=== PATIENT | male | born 1940 | race Caucasian/White ===

== ENCOUNTER 2024-02-03 19:37 | Inpatient (IN) ==
--- OUTSIDE RECORDS SUMMARY | 2024-02-03 19:44 | External Medical Summary ---
Author Name Unknown Address Unknown Organization K01:LABORATORY [facility] [place] - [address] [place] [address] Laboratory Report Ordering Provider Test Date Status ZENON DUNCAN 01/31/2024 08:34:39 Final Observation Date Value Abnormality Reference (Units ) Status MYCODE SPECIMEN-SST 01/31/2024 08:34:39 Freezing of extracted DNA, whole blood and/or serum. Final Performing Location LABORATORY C - [address] [place] [address]
--- OUTSIDE RECORDS SUMMARY | 2024-02-03 19:44 | External Medical Summary | Summary of Care ---
Author Name Unknown Organization [facility] Address [address] [place] [facility] [place] [address] Phone [phone] Care Team Providers Care Cadet Deck Name Role Phone Aaliyah Rasmussen MD Primary Care Provider Reason for Visit * Reason Comments Outpatient Testing Encounter Details Date Type Department Care Team (Late st Contact Info) Description 01/31/2024 7:30 AM EST Laboratory Laboratory [facility] [address] [place] [phone] [facility] [address] [place] [address] HTN, goal below 150/90; Hypertensive left ventricular hypertrophy, without heart failure; Pure hypercholesterolemia; Prediabetes; MyCode Research Other*[id number] Allergies Active Allergy Reactions Criticality Noted Date Comments Meperidine Hypotension 02/10/2020 Metronidazole Unknown 02/10/2020 Gadodiamide 11/30/2021 Pollen Other (Please comment) 02/10/2020 Itching around face, eyes, nose, and mouth; runny nose, sneezing Ragweed Other (Please comment) 02/10/2020 Itching around face, eyes, nose, and mouth; runny nose, sneezing Meperidine Hcl 11/30/2021 Nsaids High 12/19/2021 Other reaction(s): HX BLEEDING ULCERS-TOLD TO AVOID Pseudoephedrine Other (Please comment) 02/10/20 Heart palpitations documented as of this encounter (statuses as of 01/31/2024) Medications Medication Sig Dispensed Refills Start Date End Date Status Acetaminophen 325 MG Oral Tablet Take 1 Tablet by mouth every 6 hours as needed for Pain. 0 Active Fluorouracil 5 % External Cream (Efudex)Indications:AK (actinic keratosis) apply to affected area of sun damage nightly for 2 weeks 40 g 1 3 Active Triamcinolone Acetonide 0.1 % External Cream (Aristocort)Indications:D ermatitis Apply to area on trunk/neck as needed daily for rash 30 g 1 3 Active Donepezil HCl 10 MG Oral Tablet (Aricept)Indications:Mild cognitive impairment Take 1 Tablet by mouth in the morning. With breakfast, st 5mg 09/11/2023, inc 10mg 10/24/2023 90 Tablet 3 3 Active Dutasteride 0.5 MG Oral Capsule (Avodart) 1 Capsule. 0 3 Active Ofloxacin 0.3 % Ophthalmic Solution (Ocuflox) INSTILL 1 DROP RIGHT EYE FOUR TIMES A DAY BEGIN. 1 DAY PRIOR TO SURGERY 0 3 Active prednisoLONE Acetate 1 % Ophthalmic Suspension (Pred Forte) INSTILL 1 DROP INTO RIGHT EYE 4 TIMES A DAY 0 3 Active Atorvastatin Calcium 80 MG Oral Tablet (Lipitor)Indications:Mild cognitive impairment,Cerebral microvascular disease,Dyslipidemia, goal LDL below 70,Pure hypercholesterolemia Take 1 Tablet by mouth in the morning. Inc 11/06/2023. 90 Tablet 3 3 Active Aspirin 81 MG Oral Tablet Delayed ReleaseIndications:Mild cognitive impairment,Cerebral microvascular disease,Dyslipidemia, goal LDL below 70 Take 1 Tablet by mouth in the morning. St 11/06/2023. 100 Tablet 3 3 Active Famotidine 20 MG Oral Tablet (Pepcid) TAKE 1 TABLET BY MOUTH EVERYDAY AT BEDTIME 30 Tablet 5 3 Active Benazepril HCl 10 MG Oral Tablet (Lotensin) TAKE 1 TABLET BY MOUTH EVERY DAY IN THE MORNING 90 Tablet 1 4 Active Omeprazole 20 MG Oral Capsule Delayed Release (PriLOSEC) TAKE 1 CAPSULE BY MOUTH EVERY DAY IN THE MORNING 30 Capsule 5 4 Active Sildenafil Citrate 100 MG Oral Tablet TAKE ONE TABLET BY MOUTH DAILY NEEDED FOR ERECTILE DYSFUNCTION 10 Tablet 5 4 Active Ipratropium [place] 0.03 % Nasal Solution (Atrovent)Indications:Vas omotor rhinitis Administer 2 Sprays into each nostril 4 times a day as needed for Rhinitis. for runny nose 30 mL 5 4 Active documented as of this encounter (statuses as of 01/31/2024) Active Problems Problem Noted Date Diagnosed Date Carotid stenosis, non-symptomatic, bilateral Mild cognitive impairment 09/04/2023 Cerebral microvascular disease 09/04/2023 Sensorineural hearing loss (SNHL), bilateral 05/2023 Overview: Audiology eval 08/17--danilo SNHL, has defered TY Positional sleep apnea 01/30/2023 Nasal sinus congestion 01/30/2023 Hypertensive left ventricula r hypertrophy, without heart failure 01/17/2022 Overview: Goal<140/80 Prediabetes 12/05/2021 Overview: Per Prediabetes protocol Other male erectile dysfunction 09/23/2020 Trigger middle finger of left hand 04/23/2020 HTN, goal below 150/90 02/10/2020 Dyslipidemia, goal LDL below 70 02/10/2020 Postlaminectomy syndrome, lumbar 02/10/2020 History of bilateral knee replacement 02/10/2020 Generalized OA documented as of this encounter (statuses as of 01/31/2024) Immunizations Name Administration Dates Next Due COVID-19 mRNA, LNP-s, No Pre serve, 2-Dose Series (Moderna) 02/04/2021,12/25/2020 COVID-19, MRNA-LNP, 23-24, P F, 50 MCG/0.5 mL, 12 YRS AND ABOVE, IM (MODERNA-Spikevax) 09/17/2023 COVID-19, mRNA, LNP-s, PF, B ooster, 100mcg/0.5mg (Moderna) 04/12/2022,09/28/2021 Pneumococcal Conjugate Vacc, 13 Valent (Prevnar) 09/26/2016 Pneumococcal Polysaccharide PPV23 (Pneumovax) 09/23/2020 RSV Vac., Recomb, Adjuvant, PF,0.5 Ml (Arexvy) 09/17/2023 Season Influenza, Quad, PF, Adjuvanted, 65+ Yrs, IM (FLUAD) 09/23/2020 Seasonal Influenza, Quadriva lent Hd (Fluzone Hd) 09/04/2023,09/13/2022,09/08/2021 TDAP (age 10 and older)(Boostrix) 08/26/2014 Zoster Vaccine Recombinant (Shingrix) 10/04/2020 ,07/16/2020 documented as of this encounter Social History Tobacco Use Types Packs/Day Years Used Date Smoking Tobacco: Never Smokeless Tobacco: Never Alcohol Use Standard Drinks/Week Comments Yes 7 (1 standard drink = 0.6 oz pur e alcohol) "modest" AUDIT-C Answer Date Recorded Frequency of Alcohol Consumption 4 or more times a week 02/10/2020 Average Number of Drinks 1 or 2 020 Frequency of Binge Drinking Not on file 01/24 PHQ-2 Answer Date Recorded PHQ Adult Total Score 0 01/30/2023 Hunger Vital Sign Answer Date Recorded Worried About Running Out of Food in the Last Ye ar Never true 02/10/2020 Ran Out of Food in the Last Year Never true 02/10/2020 Sex and Gender Information Value Date Recorded Sex Assigned at Male 02/10/2020 9:00 AM EDT Gender Identity Male 02/10/2020 9:00 AM EDT Sexual Orientation Straight 02/10/2020 9: 00 AM EDT Job Start Date Occupation Industry Not on file Not on file Not on file documented as of this encounter Plan of Treatment Upcoming Encounters Date Type Department Care Team (Late st Contact Info) Description 02/05/2024 9:20 AM EDT Office Visit [facility] [address] [place] [address] Aaliyah Rasmussen MD [address] [place] [address] 03/11/2024 10:00 AM EDT Office Visit Gastroenterology, [facility] [address] [place] [address] Toya Schmidt CRNP [address] [place] [phone] 04/04/2024 8:00 AM EDT Office Visit Otolaryngology [facility] [address] [place] [address] Jim Guevara, DO [address] [place] [address] 05/13/2024 10:40 AM EDT Office Visit Sleep Disorders Ctr [facility] [address] [place] [phone] Alexandria Adam, DO [address] [place] [address] 06/11/2024 10:40 AM EDT Office Visit Dermatology [facility] [address] [place] [address] Mili Stout PA-C [address] [place] [phone] Pending Results Name Type Priority Associated Diagnoses Date /Time CBC WITH WBC DIFFERENTIAL Lab Routine HTN, goal below 150/90 Hypertensive left ventricular hypertrophy, without heart failure 01/31/2024 8:34 AM EST BASIC METABOLIC PANEL Lab Routine HTN, goal below 150/90 Hypertensive left ventricular hypertrophy, without heart failure 01/31/2024 8:34 AM EST HEPATIC FUNCTION PANEL Lab Routine Pure hypercholesterolemia 01/31/2024 8:34 AM EST LIPID PANEL WITH DIRECT LDL IF TG IS HIGH Lab Routine Pure hypercholesterolemia 01/31/2024 8:34 AM EST HEMOGLOBIN A1C Lab Routine Prediabetes 01/31/2024 8:34 AM EST MYCODE SUBSEQUENT ADULT Lab Routine MyCode Research Other*[id number] 01/31/2024 8:34 AM EST CBC Lab Routine HTN, goal below 150/90 Hypertensive left ventricular hypertrophy, without heart failure 01/31/2024 8:34 AM EST DIFFERENTIAL, AUTOMATED Lab Routine HTN, goal below 150/90 Hypertensive left ventricular hypertrophy, without heart failure 01/31/2024 8:34 AM EST MYCODE SST1 Lab Routine MyCode Research Other*[id number] 01/31/2024 8:34 AM EST MYCODE SST2 Lab Routine MyCode Research Other*[id number] 01/31/2024 8:34 AM EST URINALYSIS, REFLEX TO MICROSCOPIC Lab Routine HTN, goal below 150/90 Hypertensive left ventricular hypertrophy, without heart failure 01/31/2024 8:39 AM EST Health Maintenance Due Date Last Done Comments Depression Screening 01/31/2024 01/30/2023 HbA1c 08/03/2024 08/03/2023, 12/2022, 07/27/2022, Additional history exists DTaP,Tdap,and Td Vaccines (2 - Td or Tdap) 08/26/2024 08/26/2014 GFR 11/06/2024 11/06/2023, 06/2023, 01/25/2023, Additional history exists Albumin/Creatinine Ratio 08/07/2026 08/07/2023, 08/26 Pneumococcal Vaccine: 65+ Years Completed 09/23/2020, 09/26/2016 Zoster Vaccines Completed 10/04/2020, 07/16/2020 Influenza Vaccine (FLU shot) Completed 08/2023, 09/13/2022, 09/08/2021, Additional history exists COVID-19 Vaccine Completed 09/17/2023, , 09/28/2021, Additional history exists GARDASIL-HPV IMMUNIZATION SERIES Aged Out No longer eligible based on patient's age to complete this topic Hepatitis B Aged Out No longer eligi ble based on patient's age to complete this topic MENINGOCOCCAL (MENACTRA/MENVEO) Aged Out No longer eligible based on patient's age to complete this topic documented as of this encounter Medical Devices Not on filedocumented as of this encounter Visit Diagnoses Diagnosis HTN, goal below 150/90 Hypertensive left ventricular hypertrophy, without heart failure Pure hypercholesterolemia Prediabetes Other abnormal glucose MyCode Research Other*[id number] documented in this encounter Advance Directives Documents on File Type Date Recorded Patient Machine Operator General Expl anation Power of Cattle Broker 02/04/2008 POWER OF A TTORNEY - HEALTH CARE PROXY Care Teams Cadet Deck Relationship Specialty Start Date End Date Aaliyah Rasmussen MD [address] [facility] [place] [address] PCP - General Internal Medicine 10/28/21 documented as of this encounter
--- OUTSIDE RECORDS SUMMARY | 2024-02-03 19:44 | External Medical Summary ---
Author Name Unknown Address Unknown Organization K01:[place] [facility] [place] [address] [facility] [address] Laboratory Report Ordering Provider Test Date Status CRISTY MAN 01/31/2024 08:39:37 Final Observation Date Value Abnormality Reference (Units ) Status Color of Urine by Auto 01/31/2024 08:39:37 Light Yellow Colorless, Light Yellow, Yellow, Dark Yellow Final Clarity, Urine 01/31/2024 08:39:37 Clear Clear Final Glucose [Mass/volume] in Urine by Automated test strip 01/31/2024 08:39:37 Negative Negative (mg/dL) Final Bilirubin.total [Presence] in Urine by Automated test strip 01/31/2024 08:39:37 Negative Negative Final Ketones [Mass/volume] in Urine by Automated test strip 01/31/2024 08:39:37 Negative Negative (mg/dL) Final Specific gravity, Urine 01/31/2024 08:39:37 1.015 1.003-1.030 Final Hemoglobin [Presence] in Urine by Automated test strip 01/31/2024 08:39:37 Negative Negative Final pH, Urine 01/31/2024 08:39:37 6.5 5.0-7.5 (Units) Final Protein [Mass/volume] in Urine by Automated test strip 01/31/2024 08:39:37 Negative Negative (mg/dL) Final Urobilinogen [Mass/volume] in Urine by Automated test strip 01/31/2024 08:39:37 Normal Normal (mg/dL) Final Nitrite [Presence] in Urine by Automated test strip 01/31/2024 08:39:37 Negative Negative Final Leukocyte esterase [Presence] in Urine by Automated test strip 01/31/2024 08:39:37 Negative Negative Final Annotation Comment 01/31/2024 08:39:37 Final Screen negative - Microscopi c not performed. Performing Location LABORATORY C - [address] [place] [address]
--- OUTSIDE RECORDS SUMMARY | 2024-02-03 19:44 | External Medical Summary | Summary of Care ---
Author Name Unknown Organization [facility] Address [address] [place] [address] Phone [phone] Care Team Providers Care Presser And Shaper Knitted Goods Name Role Phone Aaliyah Rasmussen MD Primary Care Provider [phone] Reason for Visit * Reason Comments eRx-Medication Refill Encounter Details Date Type Department Care Team (Late st Contact Info) Description 01/29/2024 Refill General Internal Medicine [facility] [address] [place] [address] Aaliyah Rasmussen MD [address] [place] [address] Pure hypercholesterolemia; Cerebral microvascular disease; Mild cognitive impairment Allergies Active Allergy Reactions Criticality Noted Date [...] as of this encounter (statuses as of 01/30/2024) Medications Medication Sig Dispensed Refills Start Date [...] DYSFUNCTION 10 Tablet 5 4 Active Ipratropium [place] 0.03 % Nasal Solution (Atrovent)Indications:Vas omotor rhinitis Administer 2 Sprays into each nostril 4 times a day as needed for Rhinitis. for runny nose 30 mL 5 Active documented as of this encounter (statuses as of 01/30/2024) Active Problems Problem Noted Date Diagnosed Date [...] as of this encounter (statuses as of 01/30/2024) Immunizations Name Administration Dates Next Due COVID-19 [...] on file documented as of this encounter Miscellaneous Notes * Telephone Encounter - Ban Casillas [facility] - 01/30/2024 1:24 PM EST Refused Prescriptions: Disp Refills Atorvastatin Calcium 20 MG Oral Tablet (Li*90 Tab*0 Sig: TAKE 1TABLET BY MOUTH IN THE MORNING. INC 09/04/2023.Refused By: BAN CASILLAS for Refusal: Other (comment below)Reason for Refusal Comment: increased to 80 mg sent 11/06 documented in this encounter Plan of Treatment Upcoming Encounters Date Type Department Care Team (Late st Contact Info) Description 01/31/2024 7:30 AM EST Laboratory Laboratory [facility] [place] [address] [place] [phone] Judie, Lab [facility] [address] [facility] [place] [address] 02/05/2024 9:20 AM EDT Office Visit General Internal Medicine [facility] [address] [place] [address] Aaliyah Rasmussen MD [address] [facility] [place] [address] 03/11/2024 10:00 AM EDT Office Visit Gastroenterology, [facility] [address] [place] [address] Toya Schmidt CRNP [address] [place] [address] 04/04/2024 8:00 AM EDT Office Visit Otolaryngology [facility] [address] [place] [address] Jim Guevara DO [address] [place] [address] 05/13/2024 10:40 AM EDT Office Visit Sleep Disorders Ctr [facility] [address] [place] [phone] Alexandria Adam, DO [address] [place] [address] 06/11/2024 10:40 AM EDT Office Visit Dermatology [facility] [address] [place] [address] Mili Stout PA-C [address] [place] [phone] Health Maintenance Due Date Last Done Comments Depression Screening 01/31/2024 01/30/2023 HbA1c 08/03/2024 08/03/2023, 0 12/2022, 07/27/2022, Additional history exists DTaP,Tdap,and Td [...] as of this encounter Visit Diagnoses Diagnosis Pure hypercholesterolemia Cerebral microvascular disease Cerebrovascular disease, unspecified Mild cognitive impairment Mild cognitive impairment, so stated documented in this encounter Advance Directives Documents on File Type Date Recorded Patient Digital Media Strategist Expl anation Power of Cartographic Designer 02/04/2008 POWER OF A TTORNEY - HEALTH CARE PROXY Care Teams Presser And Shaper Knitted Goods Relationship Specialty Start Date End Date Aaliyah Rasmussen MD [address] [place] [address] PCP - General Internal Medicine 10/28/21 documented as of this encounter
--- OUTSIDE RECORDS SUMMARY | 2024-02-03 19:44 | External Medical Summary | Summary of Care ---
Author Name Unknown Organization [facility] Address [address] [place] [address] Phone [phone] Care Team Providers Care Medical Record Coder Name Role Phone Aaliyah Rasmussen MD Primary Care Provider [phone] Reason for Visit * Reason Comments Outpatient Testing Encounter Details Date Type Department Care Team (Late st Contact Info) Description 01/31/2024 7:30 AM EST Laboratory Laboratory [facility] [address] [place] [phone] [facility] Lab [address]enery [address] [place] [address] HTN, goal below 150/90; Hypertensive left ventricular hypertrophy, without heart failure; Pure hypercholesterolemia; Prediabetes; MyCode Research Other*[id number] Allergies Active Allergy Reactions Criticality Noted Date [...] DYSFUNCTION 10 Tablet 5 4 Active Ipratropium [place] 0.03 % Nasal Solution (Atrovent)Indications:Vas omotor rhinitis [...] AM EDT Office [facility] [address] [place] [address] Aaliyah Rasmussen MD [address] [place] [address] 03/11/2024 10:00 AM EDT Office Visit Gastroenterology, [facility] [address] [place] [address] Toya Schmidt CRNP [address] [place] [address] 04/04/2024 8:00 AM EDT Office Visit Otolaryngology [facility] [address] [place] [address] Jim Guevara, DO [address] [place] [address] 05/13/2024 10:40 AM EDT Office Visit Sleep Disorders Ctr [facility] [address] [place] [phone] Alexandria Adam, DO [address] [place] [address] 06/11/2024 10:40 AM EDT Office Visit Dermatology [facility] [address] [place], [place] [address] Mili Stout PA-C [address] [place] [phone] Pending Results Name Type Priority Associated Diagnoses Date /Time BASIC METABOLIC PANEL Lab Routine HTN, goal [...] MYCODE SUBSEQUENT ADULT Lab Routine MyCode Research Other*[id number] 01/31/2024 8:34 AM EST MYCODE SST1 Lab Routine MyCode Research Other*[id number] 01/31/2024 8:34 AM EST MYCODE SST2 Lab Routine MyCode Research Other*[id number] 01/31/2024 8:34 AM EST URINALYSIS, REFLEX TO [...] Not on filedocumented as of this encounter Procedures Procedure Name Priority Date/Time Associated Diagnosis Comments DIFFERENTIAL, AUTOMATED Routine 01/31/2024 8:34 AM EST HTN, goal below 150/90 Hypertensive left ventricular hypertrophy, without heart failure CBC Routine 01/31/2024 8:34 AM EST HTN, goal below 150/90 Hypertensive left ventricular hypertrophy, without heart failure CBC Routine 01/31/2024 8:34 AM EST HTN, goal below 150/90 Hypertensive left ventricular hypertrophy, without heart failure documented in this encounter Results * DIFFERENTIAL, AUTOMATED (01/31/2024 8:34 AM EST) WBC 6.86 4.00 - 10.80 K/uL 01/31/2024 8:45 AM EST [facility] 56-02 Neutrophils % 59.7 40.0 - 75.0 % 01/31/2024 8:45 AM [facility] 56-02 Lymphocytes % 23.8 18.0 - 42.0 % 01/31/2024 8:45 AM EST [facility] 56-02 Monocytes % 10.9 1.0 - 11.0 % 01/31/2024 8:45 AM EST [facility] 56-02 Eosinophils % 5.2 0.0 - 6.0 % 01/31/2024 8:45 AM [facility] 56-02 Basophils % 0.4 0.0 - 2.0 % 01/31/2024 8:45 AM [facility] 56-02 Absolute Neutrophils 4.09 1.80 - 7.70 K/uL 01/31/2024 8:45 AM EST [facility] 56-02 Absolute Lymphocytes 1.63 1.00 - 4.80 K/ul 01/31/2024 8:45 AM [facility] 56-02 Absolute Monocytes 0.75 0.00 - 1.10 K/uL 01/31/2024 8:45 AM [facility] 56-02 Absolute Eosinophils 0.36 0.00 - 0.70 K/uL 01/31/2024 8:45 AM [facility] 56-02 Absolute Basophils 0.03 0.00 - 0.20 K/uL 01/31/2024 8:45 AM [facility] 56-02 Blood Venous blood specimen / Unknown Venipuncture / Unknown 01/31/2024 8:34 AM EST 01/31/2024 8:35 AM EST Aaliyah Rasmussen MD LAB BLOOD ORDERABLES [facility] 56-[address] [place] [address] * CBC (01/31/2024 8:34 AM EST) Pathologist [facility] WBC 6.86 4.00 - 10.80 K/uL 01/31/2024 8:45 AM [facility] 56-02 RBC 4.87 4.50 - 5.25 M/uL 01/31/2024 8:45 AM [facility] 56- HGB 14.8 14.0 - 16.8 g/dL 01/31/2024 8:45 AM [facility] 56- HCT 45.6 40.0 - 48.4 % 01/31/2024 8:45 AM [facility] 56- MCV 93.6 82.0 - 99.5 fL 01/31/2024 8:45 AM [facility] 56- MCH 30.4 27.0 - 34.0 pg 01/31/2024 8:45 AM [facility] 56- MCHC 32.5 32.0 - 36.0 g/dL 01/31/2024 8:45 AM [facility] 56- RDW 13.7 11.5 - 15.5 % 01/31/2024 8:45 AM [facility] 56- PLT 224 140 - 400 K/uL 01/31/2024 8:45 AM [facility] 56- MPV 10.1 6.6 - 11.1 fL 01/31/2024 8:45 AM [facility] 56-02 Blood Venous blood specimen / Unknown Venipuncture / Unknown 01/31/2024 8:34 AM EST 01/31/2024 8:35 AM EST Aaliyah Rasmussen MD LAB BLOOD ORDERABLES [facility] 56- [address] [place] [address] documented in this encounter Visit Diagnoses Diagnosis HTN, goal below 150/90 Hypertensive left ventricular hypertrophy, without heart failure Pure hypercholesterolemia Prediabetes Other abnormal glucose MyCode Research Other*[id number] documented in this encounter Advance Directives Documents on File Type Date Recorded Patient Supervisor Green End Department Expl anation Power of Executive Chairman Of The Board 02/04/2008 POWER OF A TTORNEY - HEALTH CARE PROXY Care Teams Medical Record Coder Relationship Specialty Start Date End Date Aaliyah Rasmussen MD [address] [facility] [place] [address] PCP - General Internal Medicine 10/28/21 documented as of this encounter
--- OUTSIDE RECORDS SUMMARY | 2024-02-03 19:44 | External Medical Summary ---
Author Name Unknown Address Unknown Organization K09:[facility] [place] [address] Laboratory Report Ordering Provider Test Date Status CRISTY MAN 01/31/2024 08:34:39 Final Observation Date Value Abnormality Reference (Units ) Status BUN 01/31/2024 08:34:39 15 6-20 (mg/dL) Final Creatinine 01/31/2024 08:34:39 1.2 0.6-1.2 (mg/dL) Final Glomerular filtration rate/1.73 sq M.predicted [Volume Rate/Area] in Serum, Plasma or Blood by Creatinine-based formula (CKD-EPI) 01/31/2024 08:34:39 61 >=60 (mL/min) Final eGFR is calculated based on the CKD-EPI 2020 equation SODIUM 01/31/2024 08:34:39 141 135-146 (m mol/L) Final Potassium 01/31/2024 08:34:39 4.9 3.5-5.1 (m mol/L) Final Cl 01/31/2024 08:34:39 102 98-107 (mm ol/L) Final CO2 01/31/2024 08:34:39 30 22-32 (mmo l/L) Final Anion gap 01/31/2024 08:34:39 9 7-15 (mmol /L) Final Glucose 01/31/2024 08:34:39 97 70-120 (mg /dL) Final Calcium 01/31/2024 08:34:39 9.8 8.4-10.2 ( mg/dL) Final Performing Location [facility] [place] [address]
--- OUTSIDE RECORDS SUMMARY | 2024-02-03 19:44 | External Medical Summary ---
Author Name Unknown Address Unknown Organization [id number]:LABORATORY [facility] [place] - [address] [facility] [address] Laboratory Report Ordering Provider Test Date Status MAGDACRISTY 01/31/2024 08:34:39 Final Observation Date Value Abnormality Reference (Units ) Status Triglyceride 01/31/2024 08:34:39 105 <=174 ( mg/dL) Final Triglyceride Reference Range s (mg/dL):
<150 Acceptable
150-174 Borderline high
175-499 High
>=500 Very high Cholesterol 01/31/2024 08:34:39 166 <200 (mg /dL) Final Total Cholesterol Reference Ranges (mg/dL):
<200 Desirable
200-239 Borderline high
>=240 High HDL 01/31/2024 08:34:39 65 >39 (mg/dL ) Final HDL Cholesterol Reference Ra nges (mg/dL):
>=60 High (Desirable)
<50 Low (Undesirable) For Females
<40 Low (Undesirable) For Males NON-HDL CHOLESTEROL 01/31/2024 08:34:39 101 <=159 (mg/dL) Final Non-HDL Cholesterol Referenc e Range (mg/dL):
<100 Target level for high risk ASCVD patient
<130 Optimal for general population
130-159 Near optimal for general population
160-189 Borderline High
190-219 High
>=220 Very High LDL, (calculated) 01/31/2024 08:34:39 80 <= 129 (mg/dL) Final LDL Cholesterol Reference Ra nges (mg/dL):
<70 Target level for high risk ASCVD patient
<100 Optimal for general population
100-129 Near optimal for general population
130-159 Borderline high
160-189 High
>=190 Very high Performing Location LABORATORY [facility] - [address] [facility] [address]
--- OUTSIDE RECORDS SUMMARY | 2024-02-03 19:44 | External Medical Summary ---
Author Name Unknown Address Unknown Organization K09:[facility] [place] [address] Laboratory Report Ordering Provider Test Date Status MAGDACRISTY 01/31/2024 08:34:39 Final Observation Date Value Abnormality Reference (Units ) Status SYNC LEUKOCYTES IN BLOOD BY AUTOMATED COUNT 01/31/2024 08:34:39 6.86 4.00-10.80 (K/uL) Final Segs 01/31/2024 08:34:39 59.7 40.0-75.0 (%) Final Lymphs % 01/31/2024 08:34:39 23.8 18.0-42.0 (%) Final Monos 01/31/2024 08:34:39 10.9 1.0-11.0 (%) Final Eosinophils 01/31/2024 08:34:39 5.2 0.0-6.0 (%) Final Basos 01/31/2024 08:34:39 0.4 0.0-2.0 (%) Final Absolute Segs 01/31/2024 08:34:39 4.09 1.80-7.70 (K/uL) Final Lymphs, absolute 01/31/2024 08:34:39 1.63 1.00-4.80 (K/ul) Final Monos, Abs 01/31/2024 08:34:39 0.75 0.00-1.10 (K/uL) Final Eos, Abs 01/31/2024 08:34:39 0.36 0.00-0.70 (K/uL) Final Basos, Abs 01/31/2024 08:34:39 0.03 0.00-0.20 (K/uL) Final Performing Location [facility] [place] [address]
--- OUTSIDE RECORDS SUMMARY | 2024-02-03 19:44 | External Medical Summary ---
Author Name Unknown Address Unknown Organization K09:[facility] [place] [address] Laboratory Report Ordering Provider Test Date Status MAGDACRISTY 01/31/2024 08:34:39 Final Observation Date Value Abnormality Reference (Units ) Status Albumin 01/31/2024 08:34:39 4.5 3.8-5.0 (g/dL) Final AST (Aspartate aminotransferase) 01/31/2024 08:34:39 26 10-50 (U/L) Final Alk Phos 01/31/2024 08:34:39 112 35-130 (U/L) Final ALT (Alanine aminotransferase) 01/31/2024 08:34:39 23 10-50 (U/L) Final Bilirubin, Total 01/31/2024 08:34:39 0.7 <=1.2 (mg/dL) Final Bilirubin, Direct 01/31/2024 08:34:39 <0.2 0.0-0.3 (mg/dL) Final Protein 01/31/2024 08:34:39 7.3 6.0-8.3 (g/dL) Final Performing Location [facility] [place] [address]
--- OUTSIDE RECORDS SUMMARY | 2024-02-03 19:44 | External Medical Summary ---
Author Name Unknown Address Unknown Organization K01:LABORATORY [facility] [place] - [address] [facility] [address] Laboratory Report Ordering Provider Test Date Status CRISTY MAN 01/31/2024 08:34:39 Final Observation Date Value Abnormality Reference (Units ) Status HbA1C 01/31/2024 08:34:39 6.0 Above high normal 4. 0-5.6 (%) Final The use of HbA1c to monitor glycemic status is based on normal hemoglobin and HbA composition. This test should not be used in patients with abnormal hemoglobin that affects the half life of the red blood cell or the in vivo glycation rates. Glucose, estimated average 01/31/2024 08:34:39 126 Above high normal <126 (mg/dL) Brian pond Performing Location LABORATORY [facility] [place] - [address] [facility] [address]
--- OUTSIDE RECORDS SUMMARY | 2024-02-03 19:44 | External Medical Summary ---
Author Name Unknown Address Unknown Organization K01:LABORATORY [facility] [place] - [address] [place] [address] Laboratory Report Ordering Provider Test Date Status ZENON DUNCAN 01/31/2024 08:34:39 Final Observation Date Value Abnormality Reference (Units ) Status MYCODE SPECIMEN-SST 01/31/2024 08:34:39 Freezing of extracted DNA, whole blood and/or serum. Final Performing Location LABORATORY [facility] - [address] [place] [address]
--- OUTSIDE RECORDS SUMMARY | 2024-02-03 19:44 | External Medical Summary | Summary of Care ---
Author Name Unknown Organization [facility] Address [address] [place] [address] Phone [phone] Care Team Providers Care Sleep Technician Name Role Phone Aaliyah Rasmussen MD Primary Care Provider Reason for Referral * Evaluate & Treat - Unlimited Visits (Within 10 days (routine)) - Authorized Specialty Diagnoses / Procedures Referred By Kevin joe Referred To Contact Otolaryngology Diagnoses Vasomotor rhinitis Aaliyah Rasmussen MD [address] [place] [address] Referral ID Status Reason Start Date Expiration Date Visits Requested Visits Authorized [id number] Authorized Specialty Services Required 01/28/[phone] Question Answer Referral Priority Within 10 days (routine) Where should this appointment be scheduled? [facility] Reason for Referral Nasal/Sinus/Allergy Conditions Specific Condition: Rhinitis/Post Nasal Drip Reason for Visit * Reason Onset Date Comments Advice 01/25/2024 Encounter Details Date Type Department Care Team (Late st Contact Info) Description 01/25/2024 Telephone General Internal Medicine [place] Kevin Parisi [address] [place] [address] Aaliyah Rasmussen MD [address] [place] [id number] Advice Allergies Active Allergy Reactions Criticality Noted Date [...] TO AVOID Pseudoephedrine Other (Please comment) 02/10/20 20 Heart palpitations documented as of this encounter (statuses as of 01/28/2024) Medications Medication Sig Dispensed Refills Start Date End Date Status Acetaminophen 325 MG Oral Tablet Take 1 Tablet by mouth every 6 hours as needed for Pain. 0 Active Fluorouracil 5 % External Cream (Efudex)Indications:AK (actinic keratosis) apply to affected area of sun damage nightly for 2 weeks 40 g 1 3 Active Triamcinolone Acetonide 0.1 % External Cream (Aristocort)Indications: Dermatitis Apply to area on trunk/neck as needed daily for rash 30 g 1 3 Active Donepezil HCl 10 MG Oral Tablet (Aricept)Indications:Mil d cognitive impairment Take 1 Tablet by mouth [...] Active Atorvastatin Calcium 80 MG Oral Tablet (Lipitor)Indications:Mil d cognitive impairment,Cerebral microvascular disease,Dyslipidemia, goal LDL below [...] DYSFUNCTION 10 Tablet 5 4 Active Ipratropium Hurst 0.03 % Nasal Solution (Atrovent)Indications:Va somotor rhinitis Administer 2 Sprays into each nostril 4 times a day as needed for Rhinitis. for runny nose 30 mL 5 4 Active Ipratropium Hurst 0.03 % Nasal Solution (Atrovent)Indications:Va somotor rhinitis Administer 2 Sprays into each nostril 4 times a day as needed for Rhinitis. for runny nose 30 mL 1 3 024 Discontin ued(Refil l) documented as of this encounter (statuses as of 01/28/2024) Active Problems Problem Noted Date Diagnosed Date [...] as of this encounter (statuses as of 01/28/2024) Immunizations Name Administration Dates Next Due COVID-19 [...] encounter Miscellaneous Notes * Telephone Encounter - Harriett Monk LPN - 01/28/2024 3:25 PM EST Patients is aware and verbalizes understanding. Transferred to ENT scheduling * Telephone Encounter - Hannah Zaldivar LPN - 01/28/2024 3:08 PM EST Left message for pt to call back. * Telephone Encounter - Aaliyah Rasmussen MD - 01/28/2024 2:20 PM EST Refer to ent * Telephone Encounter - Miranda Reynoso OSA - 01/28/2024 11:21 AM EST Patient has been notified of the message. Patient states it is not curing it and still having hoarseness. * Telephone Encounter - Julia Clifford MED ASSIST - 01/28/2024 10:16 AM EST Called patient, left message to return call. * Telephone Encounter - Aaliyah Rasmussen MD - 01/25/2024 3:26 PM EST -If the medication is helping the runny nose we can send in the prescription. - if was helping and he stops it then he may have recurrence of the runny nose * Telephone Encounter - Hannah Zaldivar LPN - 01/25/2024 2:50 PM EST Pended if agreeable * Telephone Encounter - Reina Herrmann OSA - 01/25/2024 1:09 PM EST Pt calling in asking for refill on Ipratropium Hurst. Pt asking if you think he should still use it and if so can you refill? If she shouldn't, he wants to know what the side affects would be if hedoesn't take it. Please advise. documented in this encounter Plan of Treatment Upcoming Encounters Date Type Department Care Team (Late st Contact Info) Description 01/31/2024 7:30 AM EST Laboratory Laboratory [facility] [address] [facility] [place] [phone] [place] [address] [place] [address] 02/05/2024 9:20 AM EDT Office Visit General Internal Medicine [facility] [address] [facility] [place] [address] Aaliyah Rasmussen MD [address] [facility] [place] [address] 03/11/2024 10:00 AM EDT Office Visit Gastroenterology, [facility] [address] [address] Toya Schmidt CRNP [address] [address] 04/04/2024 8:00 AM EDT Office Visit Otolaryngology [facility] [address] [place] [address] Jim Guevara, DO [address] [place] [phone] 05/13/2024 10:40 AM EDT Office Visit Sleep Disorders Ctr [facility] [address] [place] [phone] Alexandria Adam, DO [address] [place] [phone] 06/11/2024 10:40 AM EDT Office Visit Dermatology [facility] [address] [place] [address] Mili Stout PA-C [address] [place] [phone] Scheduled Referrals Name Type Priority Associated Diagnoses Order Schedule ADULT/PEDS OTOLARYNGOLOGY REFERRAL OP Referral Within 10 days (routine) Vasomotor rhinitis Ordered: 01/28/2024 Health Maintenance Due Date Last Done Comments [...] as of this encounter Visit Diagnoses Diagnosis Vasomotor rhinitis Allergic rhinitis, cause unspecified documented in this encounter Advance Directives Documents on File Type Date Recorded 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 [address] PCP - General Internal Medicine 10/28/21 documented as of this encounter
--- OUTSIDE RECORDS SUMMARY | 2024-02-03 19:44 | External Medical Summary | Summary of Care ---
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 receive a call regarding this appointment within 2 weeks, please callPsychiatry Department to schedule: 4. I placed a referral for cognitive rehabilitation to help with your memory and thinking. [place] [facility]: Contact info Speech Cog Rehab PT OT Other services Telemed? [facility] [address] [place] [address] ; RN FORENSIC FAX + + + + Concussion I spent a total of 90 minutes coordinating, documenting, and providing care for this patient excluding time spent in the performance of separately billed services or time spent by another provider/QHP. AMINA Carvalho Nurse Practitioner [facility] 01/11/24 This patient is suspected to have obstructive sleep apnea given snoring, witnessed apneas and significant daytime sleepiness. A sleep study was therefore ordered. We discussed treatment modalities for DONAVAN including PAP. documented in this encounter Nursing Notes * Cherelle Rivero MED ASSIST - 01/11/2024 12:51 PM EST Chief Complaint Patient presents with NEW PATIENT Memory Loss documented in this encounter Plan of Treatment Upcoming Encounters Date Type Department Care Team (Late st Contact Info) Description 01/31/2024 7:30 AM EST Laboratory Laboratory [facility] [address] [facility] [place] [phone] Oneal Dimas [address] [place] [address] 02/05/2024 9:20 AM EDT Office Visit General Internal Medicine [facility] [address] [place] [address] Aaliyah Rasmussen MD [address] [facility] [place] [address] 03/11/2024 10:00 AM EDT Office Visit [facility], [facility] [place] [address] Toya Schmidt CRNP [facility] [place] [address] 03/28/2024 9:50 AM EDT Office Visit Neurology [facility] [address] [facility] [place] [address] Priscila Walker CRNP [address] [place] [address] 05/13/2024 10:40 AM EDT [facility] [address] [place] [phone] Alexandria Adam DO [address] [place] [address] 06/11/2024 10:40 AM EDT Office Visit Dermatology [facility] Judie [place] [address] [place] [address] Mili Stout PA-C [address] [place] [phone] Scheduled Referrals Name Type Priority Associated Diagnoses Order Schedule SLEEP MEDICINE REFERRAL OP Referral Within 10 days (routine) Positional sleep apnea Ordered: 01/11/2024 ADULT/PEDS NEUROPSYCHOLOGY REFERRAL OP Referral Within 10 days (routine) MCI (mild cognitive impairment) Ordered: 01/11/2024 SPEECH PATHOLOGY REFERRAL OP Referral Within 10 days (routine) MCI (mild cognitive impairment) Ordered: 01/11/2024 Health Maintenance Due Date Last Done Comments [...] as of this encounter Visit Diagnoses Diagnosis MCI (mild cognitive impairment)- Primary Mild cognitive impairment, so stated Positional sleep apnea Unspecified sleep apnea Cerebral microvascular disease [I67.89] Cerebrovascular disease, unspecified Memory change [R41.3] Memory loss documented in this encounter Advance Directives Documents on File Type Date Recorded 

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
--- OUTSIDE RECORDS SUMMARY | 2024-02-03 20:03 | External Medical Summary | Summary of Care ---
Author Name Unknown Organization [facility] Address [address] [place] [address] Phone [phone] Care Team Providers Care Power Plant Superintendent Name Role Phone Aaliyah Rasmussen MD Primary Care Provider [phone] Reason for Visit * Reason Comments eRx-Medication Refill Encounter Details Date Type Department Care Team (Late st Contact Info) Description 01/08/2024 Refill General Internal Medicine [facility] [address] [place] [address] Aaliyah Rasmussen MD [address] [place] [address] Allergies Active Allergy Reactions Criticality Noted Date [...] as of this encounter (statuses as of 01/09/2024) Medications Medication Sig Dispensed Refills Start Date End Date Status Acetaminophen 325 MG Oral Tablet Take 1 Tablet by mouth every 6 hours as needed for Pain. 0 Active Fluorouracil 5 % External Cream (Efudex)Indications:AK (actinic keratosis) apply to affected area of sun damage nightly for 2 weeks 40 g 1 08/14/20 23 Active Triamcinolone Acetonide 0.1 % External Cream (Aristocort)Indications :Dermatitis Apply to area on trunk/neck as needed daily for rash 30 g 1 09/27/20 23 Active Donepezil HCl 10 MG Oral Tablet (Aricept)Indications:Mi ld cognitive impairment Take 1 Tablet by mouth in the morning. With breakfast, st 5mg 09/11/2023, inc 10mg 10/24/2023 90 Tablet 3 10/24/20 23 Active hydrOXYzine HCl 25 MG Oral Tablet 1 Tablet 3 times a day as needed. 0 10/31/20 23 Active Dutasteride 0.5 MG Oral Capsule (Avodart) 1 Capsule. 0 10/26/20 23 Active Ofloxacin 0.3 % Ophthalmic Solution (Ocuflox) INSTILL 1 DROP RIGHT EYE FOUR TIMES A DAY BEGIN. 1 DAY PRIOR TO SURGERY 0 10/22/20 23 Active prednisoLONE Acetate 1 % Ophthalmic Suspension (Pred Forte) INSTILL 1 DROP INTO RIGHT EYE 4 TIMES A DAY 0 10/22/20 23 Active Atorvastatin Calcium 80 MG Oral Tablet (Lipitor)Indications:Mi ld cognitive impairment,Cerebral microvascular disease,Dyslipidemia, goal LDL below 70,Pure hypercholesterolemia Take 1 Tablet by mouth in the morning. Inc 11/06/2023. 90 Tablet 3 11/06/20 23 Active Ipratropium [place] 0.03 % Nasal Solution (Atrovent)Indications:V asomotor rhinitis Administer 2 Sprays into each nostril 4 times a day as needed for Rhinitis. for runny nose 30 mL 1 11/06/20 23 Active Aspirin 81 MG Oral Tablet Delayed ReleaseIndications:Mild cognitive impairment,Cerebral microvascular disease,Dyslipidemia, goal LDL below 70 Take 1 Tablet by mouth in the morning. St 11/06/2023. 100 Tablet 3 11/06/20 23 Active Famotidine 20 MG Oral Tablet (Pepcid) TAKE 1 TABLET BY MOUTH EVERYDAY AT BEDTIME 30 Tablet 5 11/21/20 23 Active Benazepril HCl 10 MG Oral Tablet (Lotensin) TAKE 1 TABLET BY MOUTH EVERY DAY IN THE MORNING 90 Tablet 1 12/20/19 24 Active Omeprazole 20 MG Oral Capsule Delayed Release (PriLOSEC) TAKE 1 CAPSULE BY MOUTH EVERY DAY IN THE MORNING 30 Capsule 5 12/21/19 24 Active Sildenafil Citrate 100 MG Oral Tablet TAKE ONE TABLET BY MOUTH DAILY NEEDED FOR ERECTILE DYSFUNCTION 10 Tablet 5 01/09/20 24 Active Sildenafil Citrate 100 MG Oral Tablet TAKE ONE TABLET BY MOUTH EVERY DAY NEEDED FOR ERECTILE DYSFUNCTION 10 Tablet 5 08/01/20 23 024 Discontinued documented as of this encounter (statuses as of 01/09/2024) Active Problems Problem Noted Date Diagnosed Date [...] as of this encounter (statuses as of 01/09/2024) Immunizations Name Administration Dates Next Due COVID-19 [...] Miscellaneous Notes * Telephone Encounter - Ban Casillas, [facility] - 01/09/2024 10:14 AM EST Signed Prescriptions: Disp Refills Sildenafil Citrate 100 MG Oral Tablet 10 Tab*5 Sig: TAKE ONE TABLET BY MOUTH DAILY NEEDED FOR ERECTILE DYSFUNCTIONAuthorizing Provider: Crow RASMUSSEN User: BAN CASILLAS documented in this encounter Plan of Treatment Upcoming Encounters Date Type Department Care Team (Late st Contact Info) Description 01/11/2024 1:00 PM EST Office Visit Neurology [facility] [address] [place] [address] Татьяна Diamond, DO [address] [place] [address] 01/31/2024 7:30 AM EST Laboratory Laboratory [facility] [address] [place] [phone] [facility] [place] [address] [address] [facility] [place] [address] 02/05/2024 9:20 AM EDT Office Visit General Internal Medicine [facility] [address] [place] [address] Aaliyah Rasmussen MD [address] [facility] [place] [address] 03/11/2024 10:00 AM EDT Office Visit Gastroenterology, [facility] [address] [facility] [place] [address] Toya Schmidt CRNP [address] [facility] [place] [address] 06/11/2024 10:40 AM EDT Office Visit Dermatology [facility] [address] [place] [address] Mili Stout PA-C [facility] [place] [phone] Health Maintenance Due Date Last Done Comments Depression Screening 01/31/2024 01/30/2023 HbA1c 08/03/2024 08/03/2023, 0312/2022, 07/27/2022, Additional history exists DTaP,Tdap,and Td Vaccines [...] Not on filedocumented as of this encounter Advance Directives Documents on File Type Date Recorded Patient Lvn Expl anation Power of Project Management Engineer 02/04/2008 POWER OF A TTORNEY - HEALTH CARE PROXY Care Teams Power Plant Superintendent Relationship Specialty Start Date End Date Aaliyah Rasmussen MD [address] [place] [address] PCP - General Internal Medicine 10/28/21 documented as of this encounter
[2024-02-03] MEDS: SODIUM CHLORIDE 0.9% 1,000 ML IV ONE ×2 (20:11→22:15)
[2024-02-03] MEDS: ONDANSETRON INJ 2 MG/ML 2 ML VIAL IV STA (20:12)
[2024-02-03] MEDS: OPTIRAY 320 100ml IV ONE (20:25)
[2024-02-03 20:30] LABS: iSTAT Creatinine 1.1 mg/dl (0.6-1.3); iSTAT Hemoglobin 16.7 g/dl (14.0-18.0); iSTAT Ionized Calcium 1.2 mmol/l (1.12-1.32)
[2024-02-03 20:36] LABS: Basophils # (auto) 0.07 K/uL (0.00-0.20); Basophils % (auto) 0.6 %; Eosinophils # (auto) 0.18 K/uL (0.00-0.50); Eosinophils % (auto) 1.5 %; Hematocrit (blood only) 47.8 % (42.0-52.0); Hemoglobin 15.9 g/dl (14.0-18.0); Immature Granulocytes # (auto) 0.05 K/uL (0.01-0.20); Immature Granulocytes % (auto) 0.4 %; Lymphocytes # (auto) 1.09 K/uL (1.20-3.40); Lymphocytes % (auto) 9.3 %; Mean Corpuscular Hemoglobin 30.4 pg (25.0-34.0); Mean Corpuscular Hgb Conc 33.3 g/dL (32.0-36.0); Mean Corpuscular Volume 91.4 fL (80.0-100.0); Mean Platelet Volume 10.1 fL (9.4-12.4); Neutrophils # (auto) 9.57 K/uL (1.40-6.50); Neutrophils % (auto) 82.2 %; Platelet Count 240 K/uL (130-400); RDW Coefficient of Variation 13.2 % (11.5-14.5); RDW Standard Deviation 44.3 fL (36.4-46.3); Red Blood Count 5.23 M/uL (4.70-6.10); White Blood Count 11.66 K/ul (4.8-10.8)
[2024-02-03 20:45] LABS: Albumin Globulin Ratio 1.5 (0.9-2); Albumin Level 4.4 gm/dl (3.4-5.0); BUN Creatinine Ratio 15.9 (10-20); Bilirubin,Total 0.8 mg/dl (0.2-1.0); Calcium 9.5 mg/dl (8.6-10.3); Creatinine Clr Calc Pharmacy 50.6 ml/min; Est GFR (African American) 75.1 ml/min; Est GFR (Non-African American) 64.8 ml/min; Globulin 2.9 gm/dl (2.5-4.0); Total Protein 7.3 gm/dl (6.0-8.3)
--- NOTE | 2024-02-03 20:56 | CT Scan Report ---
Exam(s): CT ABDOMEN + PELVIS With Contrast IV Amt: OPTIRAY 320 86ML EXAM: CT Abdomen and Pelvis With Intravenous Contrast CLINICAL HISTORY: Reason for exam: Infraumbilical abdominal pain. TECHNIQUE: Axial computed tomography images of the abdomen and pelvis with intravenous contrast. CTDI is 18.7 mGy and DLP is 809.36 mGy-cm. Automated exposure control was utilized for the study. A dose lowering technique was utilized adhering to the principles of ALARA. CONTRAST: Patient received OPTIRAY 320 86ML of IV contrast COMPARISON: No relevant prior studies available. FINDINGS: Lung bases: Unremarkable. No mass. No consolidation. ABDOMEN: Liver: Unremarkable. No mass. Gallbladder and bile ducts: Unremarkable. No calcified stones. No ductal dilation. Pancreas: Unremarkable. No mass. No ductal dilation. Spleen: Unremarkable. No splenomegaly. Adrenals: Unremarkable. No mass. Kidneys and ureters: Renal cysts measure up to 1.7 cm. No hydronephrosis. Stomach and bowel: Distended small bowel measures up to 3.2 cm, consistent with small bowel obstruction. Area of transition is in the RIGHT lower quadrant on coronal image 30. Diverticulosis, without acute diverticulitis. No small bowel obstruction. No free intraperitoneal air. PELVIS: Appendix: Normal appendix. Bladder: Unremarkable. No mass. Reproductive: Unremarkable as visualized. ABDOMEN and PELVIS: Intraperitoneal space: Unremarkable. No free air. No significant fluid collection. Bones/joints: Degenerative changes of the spine. Posterior fusion at L4-S1. No acute fracture. No dislocation. Soft tissues: Unremarkable. Vasculature: Atherosclerotic changes of the aorta. No abdominal aortic aneurysm. Lymph nodes: Unremarkable. No enlarged lymph nodes. IMPRESSION: 1. Distended small bowel measures up to 3.2 cm, consistent with small bowel obstruction. Area of transition is in the RIGHT lower quadrant on coronal image 30. Surgical evaluation recommended. 2. Diverticulosis, without acute diverticulitis. No small bowel obstruction. No free intraperitoneal air. Electronically signed by: Darion Tidwell MD 02/03/24 20:55 PM
[2024-02-03] MEDS: MoRPHine SULFATE 4 MG/ML 1 ML CARP\\VIAL IV STA (21:15)
--- NOTE | 2024-02-03 21:43 | Surgery Consultation ---
Date of Consultation February 03, 2024 Assessment & Plan (1) Small bowel obstruction: I discussed with the treating emergency room physician and the patient is being admitted on the hospitalist service. From surgical perspective we recommend the following: Implement n.p.o. status Provide IV fluid for hydration Follow serial labs Follow serial abdominal exams At the present time the patient's abdomen is nondistended without peritoneal signs. He also has not had any emesis in approximately 1 hour. Therefore, I feel we can hold on placing an NG tube. I did discuss with the patient that if he has any worsening of his abdominal exam, worsening symptomatology, or further emesis the use of this modality will need to be reconsidered. Antiemetics and analgesics should be provided for the patient but they should be used sparingly as are not when to mask any underlying problems with use of these medications. This was discussed with the admitting service. I had a detailed discussion with the patient and his family who are present at bedside outlining the above conservative plan. I did discuss with the patient that determination about the need for surgical intervention will be determined based on his clinical course as unfolds. Additional recommendations will be made during the patient's hospitalization as his clinical course unfolds. Addendum 5:40 AM: Patient reassessed at bedside. He denies any worsening abdominal pain. Since admission he has not had any further nausea or vomiting. He has not passed any flatus but notes his abdomen feels essentially normal this morning. He has remained hemodynamically stable and afebrile since admission. I discussed with the patient that advancement of his diet will be dependent on when he has return of bowel function. Supervising Physician Co-Signing Physician Notes I personally saw and evaluated the patient with Iggy Alvarez PA-C and agree with the assessment and plan. 83-year-old male with a small bowel obstruction, likely on the basis of adhesio ns His CT results and images were personally viewed and interpreted by myself His abdominal exam is fairly benign and has no tachycardia, fevers and his white blood cell count is 11 He is being admitted to medicine, will keep him n.p.o., no need for an NG tube No plans for any surgical intervention at this time, will continue to follow History of Present Illness Reason for Consultation: Small bowel obstruction History of Present Illness This is an 83-year-old male who presented the emergency department secondary to abdominal pain. Patient says that he was in his usual state of health feeling fine yesterday and he was able to eat all 3 meals of normal amounts. He did report that he began to have hiccups yesterday and some generalized lower abdominal pain after his evening meal. He notes that the symptoms persisted into today and he described a lower abdominal pain in a bandlike fashion with no radiation or modifying factors. He denies any fevers, shakes, or chills. No close contacts were ill with similar symptoms. He did have 2 episodes of nausea and vomiting with the most recent episode approximately 1 hour prior to my evaluation. He notes that he did not vomit any blood. He reports that he had a normal bowel movement this morning but since his symptomatology worsened he has not passed any flatus or had a bowel movement. Patient does report a history of prior surgery in the form of an open appendectomy in the 1960s. He also notes that he was recently diagnosed with irritable bowel syndrome. He says he has had a colonoscopy within the last year to the best of his knowledge there were no tumors or cancers noted. He also has a history of peptic ulcer disease in the remote past. Since arrival to the emergency department patient has had labs and imaging which independent reviewed. A CT scan of the abdomen pelvis showed the patient had distended small bowel loops measuring up to 3.2 cm with an area of transition in the right lower quadrant consistent with a small bowel obstruction. There is no intraperitoneal free air noted on this study. CBC reveals white blood cell count had a slight elevation at 11.6. Hemoglobin, hematocrit, platelet count were all normal. Chemistry profile showed sodium and potassium along with the BUN and creatinine were normal. The patient had a nonelevated lipase. His LFTs were also unremarkable. At the time my interview the patient was resting comfortably bed he was in no distress. Allergies Allergy/AdvReac Type Severity Reaction Status Date / Time meperidine [From Demerol] AdvReac Intermediate Hypotension Verified 02/03/24 21:24 NSAIDS (Non-Steroidal AdvReac Intermediate HX Verified 02/03/24 21:24 Anti-Inflamma BLEEDING ULCERS-TOLD TO AVOID pseudoephedrine AdvReac Mild Tachycardia Verified 02/03/24 21:24 [From [facility]] Home Medications Medication Instructions Recorded Confirmed Type acetaminophen 325 mg tablet 650 mg PO QID PRN Pain 03/28/21 02/03/24 History amlodipine 2.5 mg tablet 2.5 mg PO QPM 03/28/21 02/03/24 History atorvastatin 10 mg tablet 10 mg PO QAM 03/28/21 02/03/24 History benazepril 10 mg tablet 10 mg PO QAM 04/27/22 02/03/24 History dutasteride 0.5 mg capsule 0.5 mg PO QAM 10/26/23 02/03/24 History famotidine 20 mg tablet 20 mg PO QPM 10/26/23 02/03/24 History omeprazole 20 mg tablet,delayed 40 mg PO QAM 10/26/23 02/03/24 History release hydroxyzine HCl 25 mg tablet 25 mg PO BID PRN itching 10/31/23 02/03/24 History sildenafil 100 mg tablet 100 mg PO DAILY PRN Erectile 10/31/23 02/03/24 History Dysfunction aspirin 81 mg tablet,delayed 81 mg PO DAILY 02/03/24 02/03/24 History release donepezil 10 mg tablet 10 mg PO QAM 02/03/24 02/03/24 History ipratropium bromide 21 mcg (0.03 2 spray intranasal QID PRN Nasal 02/03/24 02/03/24 History %) nasal spray Congestion Patient History Medical History Fusion of spine Lumbar spinal fusion x2 2007, 2014 [facility] Right lumbar radiculopathy Osteoarthritis Hx of gastric ulcer 7 years ago History of pneumonia 1970's Spinal stenosis Degenerative disc disease lumbar Arthritis Seasonal allergies GERD (gastroesophageal reflux disease) Hiatal hernia History of stomach ulcers Hx of fracture of skull ? INTERVENTION (EVENT THAT HAPPENED "WHILE IN COLLEGE") Hypertension Hyperlipidemia Surgical History S/P carpal tunnel release L/R History of anesthesia reaction PT FELT "ANXIOUS AND SCARED FEELING" WHEN ANESTHESIA ADMINISTERED FOR TONSILLECTOMY A CHILD--also hypertension and "woke up too early" years ago after knee arthroscopy H/O shoulder surgery RT History of arthroscopy RT/LEFT KNEE History of total knee replacement RT/LEFT History of esophagogastroduodenoscopy (EGD) Hx of gastric ulcers History of colonoscopy History of appendectomy History of cataract surgery LEFT [place] teeth removed History of tonsillectomy Family History Father Pancreatic cancer Mother Myocardial infarction Other No family history of adverse response to anesthesia Social History Smoking Status: Never smoker Second Hand Exposure: No; Do You Dip or Chew Tobacco: No; Hx Alcohol Use: Yes Alcohol type: beer, wine and hard liquor Hx Substance Use: No Preferred Language: Spanish Communication Ability: Effective Cook 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 Required: No Beliefs That Will Affect Care: None Current Living Situation: Spouse Other Information That Helps Us Care for You: No Feels Safe at Home: Yes Safety Concerns: Feels Safe At This Time Assistive Devices: None Assistive Devices Comment: glasses not present Review of Systems Constitutional: no fever and no chills Ear, Nose, Mouth, Throat: no hearing loss Respiratory: no cough and no dyspnea Cardiovascular: no chest pain Gastrointestinal: as per Subjective / HPI Genitourinary: no dysuria Musculoskeletal: no back pain Integumentary: no rash Neurologic: no localized weakness Physical Exam Constitutional: WD/WN, vitals as above Eyes: no conjunctival abnormality ENMT: Ears: no hearing impairment Mouth: no oropharynx abnormality Neck: trachea midline Respiratory: normal respiratory effort; no respiratory distress and no labored breathing Cardiovascular: Rate/Rhythm: regular rate and regular rhythm Gastrointestinal (Abdomen): Abdomen is soft with minimal distention. There is minimal pain with palpation a t the time of my exam. There is also no rebound tenderness or guarding. I do not appreciate any hernias. Patient had a well-healed oblique incision in the right lower quadrant of his abdomen consistent with his noted history of open appendectomy. Musculoskeletal: No calf tenderness Skin: no rashes Neurologic: moves all extremities Psychiatric: A+Ox3, euthymic affect Results & Data Vital Signs (Past 12 Hours) Vital Signs Temp Pulse Resp BP Pulse Ox O2 Del Method 02/03/24 21:35 58 L 19 133/71 93 Room Air 02/03/24 21:00 73 21 96 Room Air 02/03/24 20:39 55 L 16 153/61 H 97 Room Air 02/03/24 20:39 54 L 18 98 Room Air 02/03/24 19:43 36.6 C 69 18 127/79 96 Room Air PG Care Time/CCT Total # of Minutes Spent Total Time Spent with Patient: Total time spent is greater than 50% in coordination of care (as documented) at patient's floor/unit and/or counseling patient: Coding Level of Care Code 59642 INT INP/OBS CARE 3/75MIN Diagnoses Small bowel obstruction K56.609
--- NOTE | 2024-02-03 21:54 | History & Physical Report ---
Date of Service February 03, 2024 Assessment & Plan (1) Small bowel obstruction: Plan: PVD, history of carotid artery disease on aspirin hypertension, stable hyperlipidemia, on statin Rx chronic bradycardia PUD, on PPI hemoglobin A1c of prediabetes, 6 from January 2024 BPH, stable on regimen mild cognitive impairment GMF Bowel rest NGT insertion to facilitate decompression if with further emesis (Insert through right nostril/nasal cavity if needed as per family given history left-sided facial injury) General surgery consult Re: SBO (Patient already seen at the ER by provider.) DVT prophylaxis with Lovenox subcu Full code Patient requesting updates providers. Mike Carmella [place], contact #[phone]. Text document was generated using [employer] voice recognition software. It may contain grammatical or spelling errors. Kindly contact undersigned for clarification of any documentation item in question. History of Present Illness Chief Complaint: Abdominal pain Primary Care Provider: Aaliyah Rasmussen MD History obtained from patient, family, and records. Medical history significant for PVD, hypertension, hyperlipidemia, chronic bradycardia, DONAVAN as per records, PUD, prediabetes, BPH, mild cognitive impairment. Patient experienced lower abdominal pain yesterday later followed by nausea and emesis. Good bowel movement today. No fever, no chills. No chest pain, no SOB. No prior bowel obstruction episodes in the past. 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 Allergies Allergy/AdvReac Type Severity Reaction Status Date / Time meperidine [From Demerol] AdvReac Intermediate Hypotension Verified 02/03/24 21:24 NSAIDS (Non-Steroidal AdvReac Intermediate HX Verified 02/03/24 21:24 Anti-Inflamma BLEEDING ULCERS-TOLD TO AVOID pseudoephedrine AdvReac Mild Tachycardia Verified 02/03/24 21:24 [From Sudafed] Home Medications Medication Instructions Recorded Confirmed Type acetaminophen 325 mg tablet 650 mg PO QID PRN Pain 03/28/21 02/03/24 History amlodipine 2.5 mg tablet 2.5 mg PO QPM 03/28/21 02/03/24 History atorvastatin 10 mg tablet 10 mg PO QAM 03/28/21 02/03/24 History benazepril 10 mg tablet 10 mg PO QAM 04/27/22 02/03/24 History dutasteride 0.5 mg capsule 0.5 mg PO QAM 10/26/23 02/03/24 History famotidine 20 mg tablet 20 mg PO QPM 10/26/23 02/03/24 History omeprazole 20 mg tablet,delayed 40 mg PO QAM 10/26/23 02/03/24 History release hydroxyzine HCl 25 mg tablet 25 mg PO BID PRN itching 10/31/23 02/03/24 History sildenafil 100 mg tablet 100 mg PO DAILY PRN Erectile 10/31/23 02/03/24 History Dysfunction aspirin 81 mg tablet,delayed 81 mg PO DAILY 02/03/24 02/03/24 History release donepezil 10 mg tablet 10 mg PO QAM 02/03/24 02/03/24 History ipratropium bromide 21 mcg (0.03 2 spray intranasal QID PRN Nasal 02/03/24 02/03/24 History %) nasal spray Congestion Past Med/Surg History Medical History Fusion of spine Lumbar spinal fusion x2 2007, 2014 [facility] Right lumbar radiculopathy Osteoarthritis Hx of gastric ulcer 7 years ago History of pneumonia 1969's Spinal stenosis Degenerative disc disease lumbar Arthritis Seasonal allergies GERD (gastroesophageal reflux disease) Hiatal hernia History of stomach ulcers Hx of fracture of skull ? INTERVENTION (EVENT THAT HAPPENED "WHILE IN COLLEGE") Hypertension Hyperlipidemia Surgical History S/P carpal tunnel release L/R History of anesthesia reaction PT FELT "ANXIOUS AND SCARED FEELING" WHEN ANESTHESIA ADMINISTERED FOR TONSILLECTOMY A CHILD--also hypertension and "woke up too early" years ago after knee arthroscopy H/O shoulder surgery RT History of arthroscopy RT/LEFT KNEE History of total knee replacement RT/LEFT History of esophagogastroduodenoscopy (EGD) Hx of gastric ulcers History of colonoscopy History of appendectomy History of cataract surgery LEFT [place] teeth removed History of tonsillectomy Family History Father Pancreatic cancer Mother Myocardial infarction Other No family history of adverse response to anesthesia Social History Smoking Status: Never smoker Second Hand Exposure: No; Do You Dip or Chew Tobacco: No; Hx Alcohol Use: Yes Alcohol type: wine and hard liquor Hx Substance Use: No Preferred Language: Lebanese Communication Ability: Effective Evp General Counsel Required: No Beliefs That Will Affect Care: None Current Living Situation: Spouse Feels Safe at Home: Yes Assistive Devices: Glasses Review of Systems Review of Systems: As per HPI, all other systems reviewed and negative Physical Exam Physical Exam: GENERAL: Comfortable, pleasant, slightly hard of hearing, no respiratory distress SKIN: Normal color, warm HEENT: Alopecia, [place] palpebral conjunctivae, no ptosis, dry buccal mucosa NECK : Supple, no tenderness CHEST : CTA, no tenderness HEART : Bradycardic, no obvious murmurs ABDOMEN: Some distention, minimal central abdominal tenderness EXTREMITIES : No LE swelling/tenderness, no other conspicuous deformities noted NEUROLOGIC : Coherent, no facial asymmetry, slightly hard of hearing, no other gross focality Results & Data Results & Data Vital Signs (Past 12 Hours) Vital Signs Temp Pulse Resp BP Pulse Ox O2 Del Method 02/03/24 21:35 58 L 19 133/71 93 Room Air 02/03/24 21:00 73 21 96 Room Air 02/03/24 20:39 55 L 16 153/61 H 97 Room Air 02/03/24 20:39 54 L 18 98 Room Air 02/03/24 19:43 36.6 C 69 18 127/79 96 Room Air Laboratory Results Laboratory Results WBC 11.66 K/ul (4.8-10.8) H 02/03/24 20:03 RBC 5.23 M/uL (4.70-6.10) 02/03/24 20:03 Hgb 15.9 g/dl (14.0-18.0) 02/03/24 20:03 POC Hgb 16.7 g/dl (14.0-18.0) 02/03/24 20:18 Hct 47.8 % (42.0-52.0) 02/03/24 20:03 POC Hct 49 % (42-52) 02/03/24 20:18 MCV 91.4 fL (80.0-100.0) 02/03/24 20: MCH 30.4 pg (25.0-34.0) 02/03/24 20: MCHC 33.3 g/dL (32.0-36.0) 02/03/24 20: RDW Std Deviation 44.3 fL (36.4-46.3) 02/03/24 20: RDW Coeff of Bib 13.2 % (11.5-14.5) 02/03/24 20: Plt Count 240 K/uL (130-400) 02/03/24 20:03 MPV 10.1 fL (9.4-12.4) 02/03/24 20:03 Immature Gran % (Auto) 0.4 % 02/03/24 20: Neut % (Auto) 82.2 % 02/03/24 20:03 Lymph % (Auto) 9.3 % 02/03/24 20: [place] % (Auto) 6.0 % 02/03/24 20: Eos % (Auto) 1.5 % 02/03/24 20:03 Baso % (Auto) 0.6 % 02/03/24 20:03 Neut # (Auto) 9.57 K/uL (1.40-6.50) H 02/03/24 20:03 Lymph # (Auto) 1.09 K/uL (1.20-3.40) L 02/03/24 20:03 [place] # (Auto) 0.70 K/uL (0.11-0.59) H 02/03/24 20:03 Eos # (Auto) 0.18 K/uL (0.00-0.50) 02/03/24 20:03 Baso # (Auto) 0.07 K/uL (0.00-0.20) 02/03/24 20: Immature Gran # (Auto) 0.05 K/uL (0.01-0.20) 02/03/24 20:03 POC Sodium 139 mmol/L (135-144) 02/03/24 20:18 Sodium 138 mmol/L (136-145) 02/03/24 20:03 POC Potassium 4.0 mmol/L (3.3-5.0) 02/03/24 20:18 Potassium 4.0 mmol/L (3.5-5.1) 02/03/24 20:03 POC Chloride 100 mmol/L (101-112) L 02/03/24 20:18 Chloride 102 mmol/L (98-107) 02/03/24 20:03 Carbon Dioxide 29 mmol/L (21-32) 02/03/24 20:03 POC Total CO2 30 mmol/L (24-31) 02/03/24 20:18 Anion Gap 7 (3-11) 02/03/24 20:03 POC Anion Gap 15.0 mmol/L (16-25) L 02/03/24 20:18 POC BUN 18 mg/dl (7-18) 02/03/24 20:18 BUN 17 mg/dl (6-23) 02/03/24 20:03 Creatinine 1.07 mg/dl (0.6-1.4) 02/03/24 20:03 POC Creatinine 1.1 mg/dl (0.6-1.3) 02/03/24 20:18 Est Cr Clr Drug Dosing 50.6 ml/min 02/03/24 20:03 Est GFR ( Amer) 75.1 ml/min 02/03/24 20:03 Est GFR (Non-Af Amer) 64.8 ml/min 02/03/24 20:03 BUN/Creatinine Ratio 15.9 (10-20) 02/03/24 20:03 Glucose 139 mg/dl (70-99(Fasting)) H 02/03/24 20:03 POC Glucose (other) 140 mg/dl (70-99) H 02/03/24 20:18 Calcium 9.5 mg/dl (8.6-10.3) 02/03/24 20:03 POC Ioniz Calcium Mally 1.20 mmol/l (1.12-1.32) 02/03/24 20:18 Total Bilirubin 0.8 mg/dl (0.2-1.0) 02/03/24 20:03 AST 21 U/L (13-39) 02/03/24 20:03 ALT 17 U/L (7-52) 02/03/24 20:03 Alkaline Phosphatase 105 U/L (34-104) H 02/03/24 20:03 Total Protein 7.3 gm/dl (6.0-8.3) 02/03/24 20:03 Albumin 4.4 gm/dl (3.4-5.0) 02/03/24 20:03 Globulin 2.9 gm/dl (2.5-4.0) 02/03/24 20:03 Albumin/Globulin Ratio 1.5 (0.9-2) 02/03/24 20:03 Lipase 20 U/L (11-82) 02/03/24 20:03 Impressions Abdomen/Pelvis CT 02/03/24 19:55 Exam(s): CT ABDOMEN + PELVIS With Contrast IV Amt: OPTIRAY 320 86ML EXAM: CT Abdomen and Pelvis With Intravenous Contrast CLINICAL HISTORY: Reason for exam: Infraumbilical abdominal pain. TECHNIQUE: Axial computed tomography images of the abdomen and pelvis with intravenous contrast. CTDI is 18.7 mGy and DLP is 809.36 mGy-cm. Automated exposure control was utilized for the study. A dose lowering technique was utilized adhering to the principles of ALARA. CONTRAST: Patient received OPTIRAY 320 86ML of IV contrast COMPARISON: No relevant prior studies available. FINDINGS: Lung bases: Unremarkable. No mass. No consolidation. ABDOMEN: Liver: Unremarkable. No mass. Gallbladder and bile ducts: Unremarkable. No calcified stones. No ductal dilation. Pancreas: Unremarkable. No mass. No ductal dilation. Spleen: Unremarkable. No splenomegaly. Adrenals: Unremarkable. No mass. Kidneys and ureters: Renal cysts measure up to 1.7 cm. No hydronephrosis. Stomach and bowel: Distended small bowel measures up to 3.2 cm, consistent with small bowel obstruction. Area of transition is in the RIGHT lower quadrant on coronal image 30. Diverticulosis, without acute diverticulitis. No small bowel obstruction. No free intraperitoneal air. PELVIS: Appendix: Normal appendix. Bladder: Unremarkable. No mass. Reproductive: Unremarkable as visualized. ABDOMEN and PELVIS: Intraperitoneal space: Unremarkable. No free air. No significant fluid collection. Bones/joints: Degenerative changes of the spine. Posterior fusion at L4-S1. No acute fracture. No dislocation. Soft tissues: Unremarkable. Vasculature: Atherosclerotic changes of the aorta. No abdominal aortic aneurysm. Lymph nodes: Unremarkable. No enlarged lymph nodes. IMPRESSION: 1. Distended small bowel measures up to 3.2 cm, consistent with small bowel obstruction. Area of transition is in the RIGHT lower quadrant on coronal image 30. Surgical evaluation recommended. 2. Diverticulosis, without acute diverticulitis. No small bowel obstruction. No free intraperitoneal air. Electronically signed by: Darion Tidwell MD 02/03/24 20:55 PM
[2024-02-03] MEDS ORDERED: PROMETHAZINE HCL 6.25 MG in SODIUM CHLORIDE 0.9% 50 ML IV PRN (21:57)
[2024-02-03] MEDS: METOCLOPRAMIDE HCL INJ 5 MG/ML 2 ML VIAL IV ONE (22:15)
[2024-02-03 23:00] LABS: Appearance Urine Clear (Clear); Bacteria Urine Automated Negative (Negative); Bilirubin Urine Negative (Negative); Blood Urine Trace (Negative); Color Urine Yellow; Glucose Urine UA Negative (Negative); Ketones Urine Negative (Negative); Leukocyte Esterase Urine Trace (Negative); Nitrite Urine Negative (Negative); Protein Urine Negative (Negative); RBC Urine Automated 0-4 /hpf (0-4); Specific Gravity Urine > 1.045 (1.000-1.030); Urobilinogen Urine Negative (Negative)
--- OUTSIDE RECORDS SUMMARY | 2024-02-03 23:05 | External Medical Summary | Summary of Care ---
Author Name Unknown Organization [facility] Address [address] [place] [address] Phone [phone] Care Team Providers Care Director Of Casework Name Role Phone Aaliyah Rasmussen MD Primary Care Provider [phone] Reason for Referral * Evaluate & Treat - Unlimited Visits (Within 10 days (routine)) - Authorized Specialty Diagnoses / Procedures Referred By Kevin joe Referred To Contact Speech Pathology / Speech Pathology Diagnoses MCI (mild cognitive impairment) Priscila Walker CRNP [address] [place] [address] Referral ID Status Reason Start Date Expiration Date Visits Requested Visits Authorized [id number] Authorized Specialty Services Required 01/11/2024 999 999 Question Answer Referral Priority Within 10 days (routine) Where should this appointment be scheduled? [facility] Cognitive rehabilitation * Evaluate & Treat - Unlimited Visits (Within 10 days (routine)) - Authorized Specialty Diagnoses / Procedures Referred By Kevin joe Referred To Contact Psychiatry / Psychology Diagnoses MCI (mild cognitive impairment) Priscila Walker CRNP [address] [place] [address] Referral ID Status Reason Start Date Expiration Date Visits Requested Visits Authorized [id number] Authorized Specialty Services Required 01/11/2024 999 999 [...] sleep apnea Priscila Walker CRNP [address] [place] [address] Referral ID Status Reason Start Date Expiration Date Visits Requested Visits Authorized [id number] Authorized Specialty Services Required 01/11/2024 2 2 Question Answer Referral Priority Within 10 days (routine) Where should this appointment be scheduled? [facility] SLEEP MED ADULT REFERRAL Sleep Apnea Testing [...] Mild cognitive impairment Aaliyah Rasmussen MD [address] [facility] [place] [address] Referral ID Status Reason Start Date Expiration Date Visits Requested Visits Authorized [id number] Authorized Specialty Services Required 3 [phone] Encounter Details Date Type Department Care Team (Latest Contact Info) Description 01/11/2024 1:00 PM EST Office Visit Neurology State Kevin Parisi [address] [place] [id number] Татьяна Diamond DO [address], [place] [id number] MCI (mild cognitive impairment)*; Positional sleep apnea; [...] as of this encounter (statuses as of 01/18/2024) Medications Medication Sig Dispensed Refills Start Date [...] 11/06/2023. 90 Tablet 3 3 Active Ipratropium Pinson 0.03 % Nasal Solution (Atrovent)Indications:Va somotor rhinitis [...] as of this encounter (statuses as of 01/18/2024) Active Problems Problem Noted Date Diagnosed Date [...] as of this encounter (statuses as of 01/18/2024) Immunizations Name Administration Dates Next Due COVID-19 [...] to help with your memory and thinking. [place]: Contact info Speech Cog Rehab PT OT Other services Telemed? [facility] [address] [place] [address] ; NAIL PROFESSIONAL FAX + + + + Concussion documented in this encounter Progress Notes * Татьяна Diamond DO - 01/12/2024 10:08 AM EST Attending attestation: I have reviewed the advanced practitioner's documentation on the date of service referenced in note, and I agree with, and take responsibility for the plan of care. Татьяна Diamond DO 01/18/2024 documented in this encounter Nursing Notes * Cherelle Rivero, MED ASSIST - 01/11/2024 12:51 PM EST Chief Complaint Patient presents with NEW PATIENT Memory Loss documented in this encounter Plan of Treatment Upcoming Encounters Date Type Department Care Team (Late st Contact Info) Description 01/31/2024 7:30 AM EST Laboratory Laboratory [facility] [address] [facility] [address] [place] [id number] Oneal Dimas [facility] [address] [facility] [place] [address] 02/05/2024 9:20 AM EDT Office Visit General Internal Medicine [facility]ie [place] [address] [place] [address] Aaliyah Rasmussen MD [address] [facility] [place] [address] 03/11/2024 10:00 AM EDT Office Visit Gastroenterology, [facility] [address] [address] Toya Schmidt CRNP [address] [address] 03/28/2024 9:50 AM EDT Office Visit Neurology [facility] [address] [place] [address] Priscila Walker CRNP [address] [place] [address] 05/13/2024 10:40 AM EDT Office Visit [facility] Ontiveros [place] [address] [place] [phone] Alexandria Adam DO [address] [place] [address] 06/11/2024 10:40 AM EDT Office Visit Dermatology [facility] [place] [address] [place] [address] Mili Stout PA-C [address] [place] [phone] Scheduled Referrals Name Type [...] Documents on File Type Date Recorded 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
--- OUTSIDE RECORDS SUMMARY | 2024-02-03 23:05 | External Medical Summary | Continuity of Care Document ---
Author Name Unknown Organization [facility] [address] [id number] Address [address] [place] [id number] Care Team Providers Care Vice President Of Human Resources Name Role Phone Aaliyah Rasmussen Primary Care Physician [phone] [id number] Date(s): 01/16/24 - 01/16/24 [facility] [address] [id number] [facility] [address] [address] Encounter Diagnosis History of lumbar laminectomy.(Discharge Diagnosis) - 01/16/24 Right lumbar radiculopathy(Discharge Diagnosis) - 01/16/24 Discharge Disposition: Home or Self Care Attending Physician: NILDA Landry Jolene Marie Allergies, Adverse Reactions, Alerts Substance Reaction Severity Status meperidine Low blood pressure Active pseudoephedrine unknown Active gadodiamide Unknown Active Demerol unknown Active Pollen 1 Propensity to adverse reaction Active Ragweed 2 Propensity to adverse reaction Active NSAIDS (nonsteroidal anti-in flammatory agents) Unknown Severe Active metroNIDAZOLE topical Allergic reaction to drug Active 1Outside Source Comment: Itching around face, eyes, nose, and mouth; runny nose, sneezing 2Outside Source Comment: Itching around face, eyes, nose, and mouth; runny nose, sneezing Assessment and Plan Extracted from: Title:Orthopaedics Office Visit Note Author:Jayne escobar PA-C, Jolene Marie Date:01/16/24 1.History of lumbar dina ctomy. Patient is responding favorably tothe transforaminal injection that he hadalmost 4 weeks ago. He and I discussed his travel plans in April. I feelhe should be reassessed in 2 months toto see if he would benefit fromanother injection. Patient is agreeable to this. He will have a date on holdfor the end of March/beginning of Aprilbased on availability. Patient will be scheduled for a right L3-L4 transforaminal epidural steroid injection under fluoroscopic guidance. Patient is a level ASA 2 for upcoming procedure. Patient I also discussed when traveling I would provide him an oral steroid Dosepak to have in case he has an exacerbation of symptoms regardless if he has the injection or if he does not. Patient seemed very thankful for this. Patient was advised if any changes or concerns between now and then to contact the office sooner. Patient verbalized understanding and is in agreement with plan. 2.Right lumbar radiculopathy Medications acetaminophen 325 mg oral tablet Start: 02/12/23 11:53:00 EDT, 325 mg =, PO, 1 Refill(s), Take 1 Tablet by mouth every 6 hours as needed for Pain. Start Date: 02/12/23 Status: Ordered Aricept 10 mg oral tablet Start: 12/14/23 16:31:00 EST, 4 Refill(s), Take 1 Tablet by mouth in the morning. With breakfast, st 5mg 09/11/2023, inc 10mg 10/24/2023 Start Date: 12/14/23 Status: Ordered aspirin 81 mg oral delayed release tablet Start: 12/14/23 16:32:00 EST, 81 mg =, PO, 4 Refill(s), Take 1 Tablet by mouth in the morning. St 11/06/2023. Start Date: 12/14/23 Status: Ordered atorvastatin 80 mg oral tablet Start: 12/14/23 16:32:00 EST, 90 each, TAKE 1 TABLET BY MOUTH IN THE MORNING. INC 11/06/2023. Start Date: 12/14/23 Status: Ordered benazepril 10 mg oral tablet Start: 02/12/23 11:53:00 EDT, 90 each, TAKE 1 TABLET BY MOUTH EVERY DAY IN THE MORNING Start Date: 02/12/23 Status: Ordered clindamycin 150 mg oral capsule Start: 02/12/23 11:55:00 EDT, 12 each, TAKE 4 CAPSULES BY MOUTH 1 HOUR BEFORE PROCEDURE Start Date: 02/12/23 Status: Ordered dutasteride 0.5 mg oral capsule Start: 12/14/23 16:33:00 EST, 90 each, TAKE 1 CAPSULE BY MOUTH EVERY DAY Start Date: 12/14/23 Status: Ordered Elidel 1% topical cream Start: 02/12/23 11:57:00 EDT, 3 Refill(s), Apply to rash after bathing as needed Start Date: 02/12/23 Status: Ordered fluorouracil 5% topical cream Start: 12/14/23 16:33:00 EST, 40 g, APPLY TO AFFECTED AREA OF SUN DAMAGE NIGHTLY FOR 2 WEEKS Start Date: 12/14/23 Status: Ordered HYDROcodone Start: 08/27/20 11:22:00 EDT, Refills: 0, PRN: pain Start Date: 08/27/20 Status: Ordered ipratropium 21 mcg/inh (0.03%) nasal spray Start: 12/14/23 16:33:00 EST, 30 mL, ADMINISTER 2 SPRAYS INTO EACH NOSTRIL 4 TIMES A DAY NEEDED FOR RHINITIS Start Date: 12/14/23 Status: Ordered Iron 100 Plus Start: 08/27/20 11:17:00 EDT Start Date: 08/27/20 Status: Ordered omeprazole 20 mg oral delayed release tablet Start: 12/14/23 16:34:00 EST, 20 mg =, PO, 4 Refill(s), Take 1 Tablet by mouth in the morning. Start Date: 12/14/23 Status: Ordered sildenafil 100 mg oral tablet Start: 02/12/23 11:57:00 EDT, 10 each, TAKE 1 TABLET BY MOUTH ONCE DAILY NEEDED FOR ERECTILE DYSFUNCTION Start Date: 02/12/23 Status: Ordered triamcinolone 0.1% topical cream Start: 02/12/23 11:56:00 EDT, 60 g, APPLY TO AREA ON TRUNK/NECK NEEDED DAILY FOR RASH Start Date: 02/12/23 Status: Ordered Mental Status 01/16/24 Barriers to Learning one year None evide nt Mandatory Health Literacy Documentation Yes Health Literacy Communication Barriers N ever Primary Language Botswanan Problem List Condition Confirmation Course Effective Dates Status Health Status Informant Gait abnormality Confirmed Active Hand arthritis Confirmed Active Hamstring tightness Confirmed Active Right hand pain Confirmed Active Left hand pain Confirmed Active Hip pain Confirmed Active History of lumbar laminectomy. Confirmed Active Sacroiliitis Confirmed Active Low back pain Confirmed Active Right lumbar radiculopathy Confirmed Active Spondylolisthesis of lumbar region Confirmed Active Pre-op exam Confirmed Active Trigger thumb, right thumb Confirmed Active Trigger finger, left middle finger Confirmed Active Vascular calcification Confirmed Active Diagnosis Diagnosis Type Effective Dates Health Status Clinical Service Informant History of lumbar laminectomy. Discharge Diagnosis 01/16/24 Right lumbar radiculopathy Discharge Diagnosis 01/16/24 Procedures Procedure Date Related Diagnosis Body Site Status Appendectomy Completed Carpal tunnel release - bilateral Completed CE - Cataract extraction - left Completed Knee replacement - Bilateral Completed Lumbar spinal fusion Comp leted Surgery - Bilateral knee Completed Surgery - Facial reconstruct ion - bone fracture Completed Surgery - Lumbar Complete d Surgery - Right shoulder Completed Tonsillectomy Completed Social History Social History Type Response Smoking Status Never smoked cigaret jai Sex Male Outpatient Note * NILDA Landry, Carly Caceres: PERFORM Event Display: .Outpt Note Authored Date: [id number] Primary Care Provider MD Grady, Aaliyah Chief Complaint follow up right L3-L4 inj 0/0/6 History of Present Illness Patient is an 83-year-old male who is a known patient to the office. He has a history of lumbar fusion with persistent right lower extremity radiculopathy. He is following up status post a right L3-L4 transforaminal epidural injection on 12/18/2023. He states he is over 50% improved since having the injection. He states he is tolerating ambulating more and doing functional activities around his house without any increase symptoms. He is very pleasedwith his response. He does express concern that he is heading [facility] in the end of April and is fearful that his symptoms may return. Hequantifies his pain is 0/10 current, 0/10 best, and 6/10 worse. He denies any fever, chills redness or drainagefrom injection site, chest pain orshortness of breath. Review of Systems Please refer to HPI Physical Exam Patient is seated comfortably in exam chair. He is alert and oriented x 3 no acute distress pleasant and conversive. Upon standing back was inspected. Skin is normal in color and temperature negative for erythema edema or deformity. He hasa large scarmid lumbar area that isnormal in color nontender and negative for edema. His previous injection site is clean, dry, and intact. Hehas no palpable tenderness over L3-L4-L5 or S1. He is able to do trunk range of motionwithoutincreased symptoms. Patient returned to seated. His sensation was assessed over the right lower extremity over L4-L5 and S1 this is intact negative straight leg raiseon the right. Strength show s no focal weaknessbilaterally. Gait is normal without assistive device. Assessment/Plan 1.History of lumbar laminectomy. Patient is responding favorably tothe transforaminal injection that he hadalmost 4 weeks ago.He and I discussed his travel plans in April. I feelhe should be reassessed in 2 months toto see if he would benefit fromanother injection. Patient is agreeable to this. He will have a date on holdfor the end of March/beginning of Aprilbased on availability. Patient will be scheduled for a right L3-L4 transforaminal epidural steroid injection under fluoroscopic guidance. Patient is a level ASA 2 for upcoming procedure. Patient I also discussed when traveling I would provide him an oral steroid Dosepak to have in case he has an exacerbation of symptoms regardless if he has the injection or if he does not. Patient seemed very thankful for this. Patient was advised if anychanges or concerns between now and then to contact the office sooner. Patient verbalized understanding and is in agreement with plan. 2.Right lumbar radiculopathy Problem List/Past Medical History Ongoing Gait abnormality Hamstring tightness Hand arthritis Hip pain History of lumbar laminectomy. Left hand pain Low back pain Pre-op exam Right hand pain Right lumbar radiculopathy Sacroiliitis Spondylolisthesis of lumbar region Trigger finger, left middle finger Trigger thumb, right thumb Vascular calcification Procedure/Surgical History Surgery - Facial reconstruction - bone fractureCE - Cataract extraction - leftCarpal tunnel release - bilateralSurgery - Right shoulderSurgery - LumbarLumbar spinal fusionKnee replacement - BilateralSurgery - Bilateral kneeAppendectomyTonsillectomy Medications acetaminophen(acetaminophen 325 mg oral tablet), 325 mg, PO aspirin(aspirin 81 mg oral delayed release tablet), 81 mg, PO atorvastatin(atorvastatin 80 mg oral tablet) benazepril(benazepril 10 mg oral tablet) clindamycin(clindamycin 150 mg oral capsule) donepezil(Aricept 10 mg oral tablet) dutasteride(dutasteride 0.5 mg oral capsule) fluorouracil topical(fluorouracil 5% topical cream) HYDROcodone, PRN ipratropium nasal(ipratropium 21 mcg/inh (0.03%) nasal spray) multivitamin with iron(Iron 100 Plus) omeprazole(omeprazole 20 mg oral delayed release tablet), 20 mg, PO pimecrolimus topical(Elidel 1% topical cream) sildenafil(sildenafil 100 mg oral tablet) triamcinolone topical(triamcinolone 0.1% topical cream) Allergies NSAIDS (nonsteroidal anti-inflammatory agents)(Severe)Unknown Demerolunknown PollenPropensity to adverse reaction RagweedPropensity to adverse reaction gadodiamideUnknown meperidineLow blood pressure metroNIDAZOLE topicalAllergic reaction to drug pseudoephedrineunknown Social History Smoking Status Never smoked cigarettes Recommendations Health Maintenance Pending(in the next year) OverDue Adult Influenza Vaccine due05/25/23and every 1year Due Adult COVID-19 Vaccination due01/16/24Unknown Frequency Adult Social Determinants of Health Screening due01/16/24Unknown Frequency Adult Tdap/Td Vaccine due01/16/24Unknown Frequency Falls Plan of Care due01/16/24Unknown Frequency Medicare Annual Wellness Visit due01/16/24and every 1year Pneumococcal Vaccine Older Adults due01/16/24One-time only Shingles Vaccine due01/16/24One-time only Due In Future Body Mass Index not due until12/12/24and every Satisfied(in the past 1 year) Satisfied Body Mass Index on12/12/23.Satisfied by SHANTE Jaimes Bonita Electronic Signature on File Electronically Reviewed/Signed by: Carly Landry PA-C Author Signature Dt/Tm:01/16/2024 11:36AM Division of Sports Medicine Electronically Reviewed/Signed by: Jac Escobar MD Cosigner Signature Dt/Tm: 01/16/2024 03:34 PM Pot Runner of Orthopaedics & Rehabilitation and Physical Medicine & Rehabilitation Patient Care team information Care Team Personnel Name: NILDA Owens Lynn Position: Physician Developing 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
[2024-02-03] MEDS: ACETAMINOPHEN 1,000 MG/100 ML VIAL IV PRN (23:19)
[2024-02-03] MEDS ORDERED: IPRATROPIUM BROMIDE NASAL SPRAY 0.06% 15ML NAE PRN (23:39)
[2024-02-04 07:20] LABS: Basophils # (auto) 0.05 K/uL (0.00-0.20); Basophils % (auto) 0.5 %; Eosinophils # (auto) 0.26 K/uL (0.00-0.50); Eosinophils % (auto) 2.4 %; Hematocrit (blood only) 40.4 % (42.0-52.0); Hemoglobin 13.5 g/dl (14.0-18.0); Immature Granulocytes # (auto) 0.05 K/uL (0.01-0.20); Immature Granulocytes % (auto) 0.5 %; Lymphocytes # (auto) 1.77 K/uL (1.20-3.40); Mean Corpuscular Hemoglobin 30.5 pg (25.0-34.0); Mean Corpuscular Hgb Conc 33.4 g/dL (32.0-36.0); Mean Corpuscular Volume 91.2 fL (80.0-100.0); Mean Platelet Volume 10.1 fL (9.4-12.4); Monocytes # (auto) 0.95 K/uL (0.11-0.59); Monocytes % (auto) 8.6 %; Neutrophils # (auto) 7.95 K/uL (1.40-6.50); Platelet Count 206 K/uL (130-400); RDW Coefficient of Variation 13.4 % (11.5-14.5); RDW Standard Deviation 45.1 fL (36.4-46.3); Red Blood Count 4.43 M/uL (4.70-6.10); White Blood Count 11.03 K/ul (4.8-10.8)
[2024-02-04 07:39] LABS: BUN Creatinine Ratio 17.9 (10-20); Calcium 8.2 mg/dl (8.6-10.3); Est GFR (African American) 86.7 ml/min; Est GFR (Non-African American) 74.8 ml/min
[2024-02-04] MEDS: DONEPEZIL HCL 10 MG TAB PO SCH (08:45)
[2024-02-04] MEDS: PANTOprazole 40 MG TAB PO SCH (08:45)
[2024-02-04] MEDS: ASPIRIN 81 MG ECTAB PO SCH (08:45)
[2024-02-04] MEDS: FINASTERIDE 5 MG TAB PO SCH (08:45)
[2024-02-04] MEDS: ATORVASTATIN 10 MG TAB PO SCH (08:45)
[2024-02-04] MEDS: ENOXAPARIN INJ 30 MG/0.3 ML SYR SQ SCH (08:46)
[2024-02-04] MEDS: ENALAPRIL MALEATE 10 MG TAB PO SCH (08:46)
--- NOTE | 2024-02-04 10:05 | Surgery Progress Note ---
Date of Service February 04, 2024 Assessment & Plan (1) Small bowel obstruction: Plan: Patient here with abdominal pain, nausea/vomiting and findings concerning for SBO He feels much better this AM. Denies any current pain, nausea/vomiting Starting to pass some flatus Abdomen soft, mild discomfort in lower belly Okay to trial clears today, would await more meaningful bowel function prior to advancing further Admission and Anticipated Discharge Date Admission Date: February 03, 2024 Supervising Physician Co-Signing Physician Notes I personally saw and evaluated the patient with Jennyfer De Santiago PA-C and agree with the assessment and plan. 83-year-old male with a small bowel obstruction, likely on the basis of adh esions He is feeling better without abdominal pain He states he is passing a very small amount of flatus I think a trial of clear liquids is indicated Still no plans for any surgery Will follow along Subjective Patient reports feeling much better. Said his pain improved last night. Denies any nausea/vomiting. Passing small amount of flatus, no BM. Physical Exam Physical Exam: awake/alert, no distress Respiratory: normal respiratory effort Gastrointestinal (Abdomen): Inspection/Auscultation: abdomen not distended Percussion/Palpation: + abdomen tender (mild discomfort in bilateral lower abdomen) and abdomen soft; no guarding Results & Data Vital Signs (Past 12 Hours) Vital Signs Temp Pulse Pulse Resp BP BP Pulse Ox 02/04/24 07:40 98.1 F 53 L 16 148/73 H 97 02/03/24 23:37 02/03/24 23:37 98.1 F 62 18 156/72 H 97 02/03/24 23:13 98.1 F 62 18 156/72 H 97 02/03/24 22:30 59 L 23 139/71 95 02/03/24 22:19 58 L O2 Del Method 02/04/24 07:40 Room Air 02/03/24 23:37 Room Air 02/03/24 23:37 Room Air 02/03/24 23:13 Room Air 02/03/24 22:30 Room Air 02/03/24 22:19 PG Care Time/CCT Total # of Minutes Spent Total Time Spent with Patient: Total time spent is greater than 50% in coordination of care (as documented) at patient's floor/unit and/or counseling patient: Coding Level of Care Code 39146 SUB INP/OBS CARE 12/20MIN Diagnoses Small bowel obstruction K56.154
[2024-02-04] MEDS: cefTRIAXone SODIUM 2,000 MG in DEXTROSE 5 % MINI-B 50 ML IV SCH (12:02)
--- NOTE | 2024-02-04 14:04 | Hospitalist Progress Note ---
Date of Service February 04, 2024 Assessment & Plan (1) Small bowel obstruction: Plan: 83-year-old male with PMH of PVD, HTN, HLD, chronic bradycardia, DONAVAN, PVD, prediabetes, BPH, mild cognitive impairment presented to the ED with lower abdominal pain followed by nausea and emesis. He is being managed for the following: Small bowel obstruction Patient presented with abdominal pain, nausea, emesis. Admitting CTAP with a small bowel obstruction. If NG tube is needed (Insert through right nostril/nasal cavity if needed as per family given history left-sided facial injury) Patient moving gas, on clear liquid diet per surgery, has normal bowel. Patient reports resolution of his abdominal pain. General surgery on board, appreciate recommendation. Nausea control, pain management, can DC IV fluid given good p.o. intake. Concern for UTI: Admitting urine culture pending, if negative discontinue antibiotic. On Rocephin from 01/06. Other chronic medical conditions: Continue with/resume home meds as and when able. PVD, history of carotid artery disease on aspirin hypertension, stable hyperlipidemia, on statin Rx chronic bradycardia PUD, on PPI prediabetes, A1c of 6 from January 2024 BPH, stable on regimen mild cognitive impairment DVT prophylaxis with Lovenox subcu Full code Patient Ms. Carmella Milan, contact #[phone]. Text document was generated using [employer] voice recognition software. It may contain grammatical or spelling errors. Kindly contact undersigned for clarification of any documentation item in question. Admission and Anticipated Discharge Date Admission Date: February 03, 2024 Subjective Patient was seen and examined at bedside. Patient was sitting up in bed, eating his clear liquid diet, denies abdominal pain, reports moving gas, has not moved bowel. Patient reports feeling better. Patient denies any fever/headache/dizziness/chest pain. Patient denies any nausea or vomiting. Physical Exam Physical Exam: GENERAL: Alert and oriented x3. NAD, on RA. HEENT: No pallor, no icterus. Pupils equal, round and reactive to light. Oral mucosa moist. NECK: No JVD, no neck masses. HEART: S1 and S2 heard. Regular rate and rhythm. No murmur, no gallop. RESPIRATORY SYSTEM: Normal AP diameter. No accessory muscle use. No wheezing, no crackles. ABDOMEN: Soft, bowel sounds present, nontender, no distention. CENTRAL NERVOUS SYSTEM: No facial droop. Speech is clear. Obeys simple commands. Moves extremities. EXTREMITIES: No edema, no erythema seen. Results & Data Results & Data Vital Signs (Past 12 Hours) Vital Signs Temp Pulse Resp BP Pulse Ox O2 Del Method 02/04/24 07:40 36.7 C 53 L 16 148/73 H 97 Room Air
[2024-02-04] MEDS ORDERED: ONDANSETRON INJ 2 MG/ML 2 ML VIAL IV PRN (14:11)
[2024-02-04] MEDS: MoRPHine SULFATE 4 MG/ML 1 ML CARP\\VIAL ONE (18:40)
[2024-02-04] MEDS: amLODIPine BESYLATE 5 MG TAB PO SCH (20:37)
[2024-02-04] MEDS: FAMOTIDINE 20 MG TAB PO SCH (20:38)
--- NOTE | 2024-02-05 08:18 | Surgery Progress Note ---
Date of Service February 05, 2024 Assessment & Plan (1) Small bowel obstruction: Plan: Tolerating clears Advance to low fiber diet today If continues to do well and tolerates diet he can be discharged today Surgery will sign off at this time, please call with any questions or concerns Admission and Anticipated Discharge Date Admission Date: February 03, 2024 Subjective Pt seen and examined. Tolerating clears. No abdominal pain. Had a BM. Review of Systems Constitutional: no fever and no chills Gastrointestinal: no abdominal pain, no nausea and no vomiting Physical Exam Constitutional: WD/WN, vitals as above Gastrointestinal (Abdomen): Inspection/Auscultation: abdomen normal to inspection; abdomen not distended Percussion/Palpation: abdomen soft; abdomen nontender, no guarding and abdomen not rigid Results & Data Vital Signs (Past 12 Hours) Vital Signs Temp Pulse Resp BP BP Pulse Ox O2 Del Method 02/05/24 07:13 36.4 C L 56 L 16 160/85 H 172/84 H 98 Room Air PG Care Time/CCT Total # of Minutes Spent Total Time Spent with Patient: Total time spent is greater than 50% in coordination of care (as documented) at patient's floor/unit and/or counseling patient: Coding Level of Care Code 77061 SUB INP/OBS CARE 12/20MIN Diagnoses Small bowel obstruction K56.609
[2024-02-05 09:38] LABS: Hematocrit (blood only) 46.9 % (42.0-52.0); Hemoglobin 15.3 g/dl (14.0-18.0); Mean Corpuscular Hemoglobin 30.8 pg (25.0-34.0); Mean Corpuscular Hgb Conc 32.6 g/dL (32.0-36.0); Mean Corpuscular Volume 94.4 fL (80.0-100.0); Platelet Count 213 K/uL (130-400); RDW Coefficient of Variation 13.3 % (11.5-14.5); RDW Standard Deviation 46.5 fL (36.4-46.3); Red Blood Count 4.97 M/uL (4.70-6.10); White Blood Count 7.56 K/ul (4.8-10.8)
[2024-02-05 09:55] LABS: BUN Creatinine Ratio 13.6 (10-20); Calcium 8.8 mg/dl (8.6-10.3); Creatinine Clr Calc Pharmacy 61.6 ml/min; Est GFR (African American) 93.4 ml/min; Est GFR (Non-African American) 80.6 ml/min; Phosphorus 2.7 mg/dl (2.5-4.9); Potassium 3.7 mmol/L (3.5-5.1)
[2024-02-05] MEDS ORDERED: ACETAMINOPHEN 325 MG TAB PO PRN (11:40)
--- NOTE | 2024-02-05 14:28 | Hospitalist Progress Note ---
Date of Service February 05, 2024 Assessment & Plan (1) Small bowel obstruction: Plan: 83-year-old male with PMH of PVD, HTN, HLD, chronic bradycardia, DONAVAN, PVD, prediabetes, BPH, mild cognitive impairment presented to the ED with lower abdominal pain followed by nausea and emesis. He is being managed for the following: Small bowel obstruction Patient presented with abdominal pain, nausea, emesis. Admitting CTAP with a small bowel obstruction. If NG tube is needed (Insert through right nostril/nasal cavity if needed as per family given history left-sided facial injury) Patient tolerating advancement of diet, moved bowel, moving gas, no abdominal pain. General surgery on board, appreciate recommendation. Nausea control, pain management. Concern for UTI: Admitting urine culture pending, if negative discontinue antibiotic. On Rocephin from 01/06. Await culture results. Other chronic medical conditions: Continue with/resume home meds as and when able. PVD, history of carotid artery disease on aspirin hypertension, stable hyperlipidemia, on statin Rx chronic bradycardia PUD, on PPI prediabetes, A1c of 6 from January 2024 BPH, stable on regimen mild cognitive impairment DVT prophylaxis with Lovenox subcu Full code Patient Ms. Carmella Milan, contact #[phone]. Given phone call 02/04, updated on plan of care, answered all her questions to her satisfaction, she voiced understanding. Text document was generated using [employer] voice recognition software. It may contain grammatical or spelling errors. Kindly contact undersigned for clarification of any documentation item in question. Admission and Anticipated Discharge Date Admission Date: February 03, 2024 Subjective Patient was seen and examined at bedside. Patient was sitting up in bed, had mobile, tolerating diet, diet advanced to low fiber, denies abdominal pain. Patient reports feeling better. Patient denies any fever/headache/dizziness/chest pain. Patient denies any nausea or vomiting. Physical Exam Physical Exam: GENERAL: Alert and oriented x3. NAD, on RA. HEENT: No pallor, no icterus. Pupils equal, round and reactive to light. Oral mucosa moist. NECK: No JVD, no neck masses. HEART: S1 and S2 heard. Regular rate and rhythm. No murmur, no gallop. RESPIRATORY SYSTEM: Normal AP diameter. No accessory muscle use. No wheezing, no crackles. ABDOMEN: Soft, bowel sounds present, nontender, no distention. CENTRAL NERVOUS SYSTEM: No facial droop. Speech is clear. Obeys simple commands. Moves extremities. EXTREMITIES: No edema, no erythema seen. Results & Data Results & Data Vital Signs (Past 12 Hours) Vital Signs Temp Pulse Resp BP BP Pulse Ox O2 Del Method 02/05/24 08:00 Room Air 02/05/24 07:13 36.4 C L 56 L 16 160/85 H 172/84 H 98 Room Air
[2024-02-06 08:47] LABS: Hematocrit (blood only) 42.1 % (42.0-52.0); Mean Corpuscular Hemoglobin 30.2 pg (25.0-34.0); Mean Corpuscular Hgb Conc 33.3 g/dL (32.0-36.0); Mean Corpuscular Volume 90.9 fL (80.0-100.0); Mean Platelet Volume 10.5 fL (9.4-12.4); Platelet Count 211 K/uL (130-400); RDW Coefficient of Variation 13.2 % (11.5-14.5); RDW Standard Deviation 44.5 fL (36.4-46.3); Red Blood Count 4.63 M/uL (4.70-6.10); White Blood Count 8.09 K/ul (4.8-10.8)
[2024-02-06 09:06] LABS: BUN Creatinine Ratio 13.5 (10-20); Calcium 8.6 mg/dl (8.6-10.3); Creatinine Clr Calc Pharmacy 52.1 ml/min; Est GFR (African American) 77.7 ml/min; Potassium 3.9 mmol/L (3.5-5.1)
--- NOTE | 2024-02-06 11:12 | Discharge Summary ---
Discharge Summary Date of Service February 06, 2024 Notes For Next Care Provider Patient was admitted with nausea, vomiting and abdominal pain. Initial CT scan concerning for small bowel obstruction. He was treated conservatively with bowel rest, IV fluids with eventual return of bowel function. He did not require NG tube placement. On admission urinalysis concerning for infection and he completed a course of antibiotics. Medication Changes From Visit Cefdinir 300mg by mouth twice daily for additional 2 days to treat for UTI. Recommend daily probiotic while on antibiotic therapy. Continue current medication regimen. Admission HPI Per Admitting Provider History obtained from patient, family, and records. Medical history significant for PVD, hypertension, hyperlipidemia, chronic bradycardia, DONAVAN as per records, PUD, prediabetes, BPH, mild cognitive impairment. Patient experienced lower abdominal pain yesterday later followed by nausea and emesis. Good bowel movement today. No fever, no chills. No chest pain, no SOB. No prior bowel obstruction episodes in the past. 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 OROPHARYNX:mucous membranes are moist NECK: supple, no nuchal rigidity, no adenopathy, non-tender LUNGS: Clear to auscultation. Normal chest wall mechanics HEART: no murmurs, S1 normal and S2 normal ABDOMEN: abdomen soft, mild tenderness palpation, normo-active bowel sounds, no masses, no rebound or guarding. UPPER EXTREMITIES: upper extremities are grossly normal. LOWER EXTREMITIES: No pitting edema. NEURO EXAM: Normal sensorium, cranial nerves II-XII grossly intact, normal speech, no gross weakness of arms, no gross weakness of legs. Principal Dx & Hospital Course #1 = Principal Diagnosis (1) Small bowel obstruction: 83-year-old male with PMH of PVD, HTN, HLD, chronic bradycardia, DONAVAN, PVD, prediabetes, BPH, mild cognitive impairment presented to the ED with lower abdominal pain followed by nausea and emesis. He is being managed for the following: Small bowel obstruction Patient presented with abdominal pain, nausea, emesis. Admitting CTAP with a small bowel obstruction. Pt did not require NG Tube Patient tolerating advancement of diet, moved bowel, moving gas, no abdominal pain. General surgery on board and recommended okay to discharge when tolerating diet Possible UTI: Admitting urine culture 5,000 gram positive cocci. Received 3 days of IV ceftriaxone. Will complete course of antibiotics and discharge on oral cefdinir for 2 more days Other chronic medical conditions: Continue with/resume home meds as and when able. PVD, history of carotid artery disease on aspirin hypertension, stable hyperlipidemia, on statin Rx chronic bradycardia PUD, on PPI prediabetes, A1c of 6 from January 2024 BPH, stable on regimen mild cognitive impairment Pt is medically stable for discharge and will be discharged later today. Pt was seen and examined in collaboration with Dr. Carr, please see addendum. Discharge Exam Gen: elderly, M, sitting up in bed, in good spirits, surgical mask in place, WD/WN, NAD, A&O x3 HEENT: Normocephalic, atraumatic, conjunctivae moist, sclerae anicteric, mucous membranes moist. Lung: Clear to Auscultation bilaterally, no wheezes/rales/rhonchi Heart: Regular rate, regular rhythm, no murmurs, rubs, or gallops Abdomen: Soft, NT, ND +BS x 4 Extremities: No edema Skin: Warm, no rash, negative turgor. Updated Medication List Medication Instructions Recorded Confirmed Type acetaminophen 325 mg tablet 650 mg PO QID PRN Pain 03/28/21 02/03/24 History amlodipine 2.5 mg tablet 2.5 mg PO QPM 03/28/21 02/03/24 History atorvastatin 10 mg tablet 10 mg PO QAM 03/28/21 02/03/24 History benazepril 10 mg tablet 10 mg PO QAM 04/27/22 02/03/24 History dutasteride 0.5 mg capsule 0.5 mg PO QAM 10/26/23 02/03/24 History famotidine 20 mg tablet 20 mg PO QPM 10/26/23 02/03/24 History omeprazole 20 mg tablet,delayed 40 mg PO QAM 10/26/23 02/03/24 History release hydroxyzine HCl 25 mg tablet 25 mg PO BID PRN itching 10/31/23 02/03/24 History sildenafil 100 mg tablet 100 mg PO DAILY PRN Erectile 10/31/23 02/03/24 History Dysfunction aspirin 81 mg tablet,delayed 81 mg PO DAILY 02/03/24 02/03/24 History release donepezil 10 mg tablet 10 mg PO QAM 02/03/24 02/03/24 History ipratropium bromide 21 mcg (0.03 2 spray intranasal QID PRN Nasal 02/03/24 02/03/24 History %) nasal spray Congestion cefdinir 300 mg capsule 300 mg PO Q12H 2 days #4 caps 02/06/24 Rx Hospital Stay Data Consultations 02/03/24 21:09 ED Decision to Admit Stat 02/03/24 23:13 Consult General Surgery Routine Diagnostic Imagining Performed Abdomen/Pelvis CT 02/03/24 19:55 Exam(s): CT ABDOMEN + PELVIS With Contrast IV Amt: OPTIRAY 320 86ML EXAM: CT Abdomen and Pelvis With Intravenous Contrast CLINICAL HISTORY: Reason for exam: Infraumbilical abdominal pain. TECHNIQUE: Axial computed tomography images of the abdomen and pelvis with intravenous contrast. CTDI is 18.7 mGy and DLP is 809.36 mGy-cm. Automated exposure control was utilized for the study. A dose lowering technique was utilized adhering to the principles of ALARA. CONTRAST: Patient received OPTIRAY 320 86ML of IV contrast COMPARISON: No relevant prior studies available. FINDINGS: Lung bases: Unremarkable. No mass. No consolidation. ABDOMEN: Liver: Unremarkable. No mass. Gallbladder and bile ducts: Unremarkable. No calcified stones. No ductal dilation. Pancreas: Unremarkable. No mass. No ductal dilation. Spleen: Unremarkable. No splenomegaly. Adrenals: Unremarkable. No mass. Kidneys and ureters: Renal cysts measure up to 1.7 cm. No hydronephrosis. Stomach and bowel: Distended small bowel measures up to 3.2 cm, consistent with small bowel obstruction. Area of transition is in the RIGHT lower quadrant on coronal image 30. Diverticulosis, without acute diverticulitis. No small bowel obstruction. No free intraperitoneal air. PELVIS: Appendix: Normal appendix. Bladder: Unremarkable. No mass. Reproductive: Unremarkable as visualized. ABDOMEN and PELVIS: Intraperitoneal space: Unremarkable. No free air. No significant fluid collection. Bones/joints: Degenerative changes of the spine. Posterior fusion at L4-S1. No acute fracture. No dislocation. Soft tissues: Unremarkable. Vasculature: Atherosclerotic changes of the aorta. No abdominal aortic aneurysm. Lymph nodes: Unremarkable. No enlarged lymph nodes. IMPRESSION: 1. Distended small bowel measures up to 3.2 cm, consistent with small bowel obstruction. Area of transition is in the RIGHT lower quadrant on coronal image 30. Surgical evaluation recommended. 2. Diverticulosis, without acute diverticulitis. No small bowel obstruction. No free intraperitoneal air. Electronically signed by: Darion Tidwell MD 02/03/24 20:55 PM Pending Results Patient Have Any Pending Studies at Discharge: No Discharge Instructions Given to Patient (Per Discharging Provider) MEDICATION CHANGES: Cefdinir 300mg by mouth twice daily for additional 2 days to treat for UTI. Recommend daily probiotic while on antibiotic therapy. Continue current medication regimen. SUMMARY OF TEST RESULTS: You were admitted to hospital secondary to small bowel obstruction. Your symptoms of nausea, vomiting and abdominal pain have resolved with conservative treatment. On day of discharge you are tolerating low fiber diet without symptoms. You are passing gas as well as moving stool. Your urine test on admission was concerning for possible infection. You have since been treated with a course of antibiotics and will complete 2 more days upon discharge. PENDING TEST RESULTS: None RECOMMENDATIONS FOR FOLLOW-UP: Please follow-up with primary care provider as scheduled. Recommend to follow a low fiber diet. We discussed with your primary care provider how long to follow a low fiber diet for. Continue current medication regimen. Recommend staying well hydrated. OTHER INSTRUCTIONS: Seek medical attention if you have: * temperature above 101 * chest pain or trouble breathing * abdominal pain, nausea, vomiting * diarrhea, dark stools or bloody stools * any unanswered questions or concerns Call 911 if symptoms are severe. Please take good care of yourself. It has been a pleasure taking care of you. Please take care of yourself. If you have any questions regarding your recent hospitalization please contact [facility] and request Sal Chiu @ [phone]. Deann Leiva PA-C Total Time Total Time Spent Total Time Spent (In Minutes): 40 minutes Supervising Physician Co-Signing Physician Notes Agree with findings and plans as detailed by Advanced Provider and take responsibility I spent a total of 30 minutes coordinating, documenting and providing care for this patient excluding time spent in performance of separately billed services
== END 2024-02-06 14:24 | disposition home or self-care (01) | DRG 389 ==
LOC: ED 19:37 → SUATTDRO 21:56 → 3N 21:56